=== PATIENT | female | born 1930 | race Caucasian/White ===

== ENCOUNTER 2016-10-06 05:18 | Observation (INO) | payer OTHER ==
[~2016-10-06] VITALS: Ht 152.4 cm; Wt 90.2 kg
[~2016-10-06 05:18] MED LIST: LSX40 PO; OXGN; POTA10CA28 PO; PRLSR20 PO
--- NOTE | 2016-10-06 05:54 | EMERGENCY ROOM VISIT NOTE ---
History Report prepared by Byron: Alexander White Under the Supervision of: Dr. Natalya Amin D.O. First contact with patient: 05:31 Chief Complaint: FALL Stated Complaint: FALL/SHOULDER PAIN History of Present Illness The patient is an 86 year old female who presents to the Emergency Room with complaints of an acute fall that occurred at 0400 this morning. The patient attempted to get up and go to the bathroom when she fell. She could not get back up on her own after the fall. The patient may have reinjured her right shoulder during the fall, which she injured during another fall back in August. The patient did not hit her head or lose consciousness. She denies head pain, neck pain, or abdominal pain. The patient may have been lightheaded prior to falling. The patient ambulates with a walker. She felt fine when she went to bed last night. The patient is on her last week of a six month course of chemotherapy for breast cancer. She has been becoming increasingly weak throughout the treatment. She has a port for her chemotherapy treatment. The patient receives Warfarin. It is common for her to become incontinent, as per her daughter. The patient lives by herself and has a home nurse check on her. Source of History: patient, family Onset: 0400 Position: other (global) Quality: other (fall) Timing: other (acute) Associated Symptoms: No LOC, No abdominal pain, No headache, No neck pain Review of Systems See HPI for pertinent positives & negatives. A total of 10 systems reviewed and were otherwise negative. Past Medical & Surgical Medical Problems: (1) Carcinoma of breast (2) CHF (congestive heart failure) (3) History of breast cancer (4) HTN (hypertension) (5) Pulmonary embolism Surgical Problems: (1) H/O cystoscopy (2) H/O mastectomy (3) H/O: hysterectomy (4) S/P appendectomy Family History Diabetes mellitus FH: cancer Hypertension Social History Smoking Status: Former Smoker Alcohol Use: none Drug Use: none Marital Status: Housing Status: lives alone Occupation Status: retired Current/Historical Medications Scheduled Furosemide (Furosemide), 40 MG PO QAM Omeprazole (Prilosec), 20 MG PO QAM Oxygen (Oxygen), 2 LITERS NA PRN Potassium Chloride (Micro-K Ext Rel), 10 MEQ PO BID Warfarin Sod (Jantoven), 5 MG PO DAILY Scheduled PRN Ranitidine HCl (Ranitidine HCl), 150 MG PO QPM PRN for GI Upset Allergies Coded Allergies: Penicillins (Verified Allergy, Intermediate, RASH, 10/06/16) Latex1 -Allergic Contact Dermititis (Verified Allergy, Mild, RASH, ) Thimerosal (Verified Allergy, Unknown, 07/26/16) Adhesives (Verified Adverse Reaction, Unknown, BANDAIDS,TAPE, 10/06/16) Physical Exam Vital Signs Date Time Temp Pulse Resp B/P Pulse Ox O2 Delivery O2 Flow Rate FiO2 10/06/16 06:27 100 20 136/82 98 Nasal Cannula 2.0 10/06/16 05:30 104 10/06/16 05:20 37.1 110 22 147/107 97 Nasal Cannula 2.0 Physical Exam General: Strong smell of urine. HEENT: Head - normocephalic and atraumatic Pupils are equal, round, and reactive to light. Extraocular eye muscles are intact, and sclera are anicteric. Nose - moist nasal mucosa without discharge. Mouth - moist buccal mucosa. Oropharynx is nonerythematous and there is no tonsillar exudate or edema noted. Neck: Supple; no JVD, nuchal rigidity, cervical lymphadenopathy. Heart: Regular rate and rhythm. There is a normal S1 and S2 with no murmurs, clicks, or gallops appreciated. Lungs: Clear to auscultation bilaterally with no wheezes, rales, or rhonchi. Abdomen: Soft, completely nontender, nondistended, with good bowel sounds. There are no palpable pulsatile masses or hepatosplenomegaly. There is no guarding, rigidity, or rebound noted. Extremities: Limited range of motion of the right shoulder, no pain with palpation. Significant edema and peripheral vascular changes noted to both lower extremities, right worse than left. Skin: warm and dry with good turgor and no rashes. Medical Decision & Procedures ER Provider Diagnostic Interpretation: X-ray results as stated below per interpretation by me. RIGHT SHOULDER X-RAY: No fracture or dislocation. No shoulder separation. Laboratory Results 10/06/16 06:32 Red Blood Count 3.51, Mean Corpuscular Volume 90.6, Mean Corpuscular Hemoglobin 29.3, Mean Corpuscular Hemoglobin Concent 32.4, Mean Platelet Volume 10.6, Neutrophils (%) (Auto) 87.5, Lymphocytes (%) (Auto) 9.1, Monocytes (%) (Auto) 2.5, Eosinophils (%) (Auto) 0.1, Basophils (%) (Auto) 0.1, Neutrophils # (Auto) 6.41, Lymphocytes # (Auto) 0.67, Monocytes # (Auto) 0.18, Eosinophils # (Auto) 0.01, Basophils # (Auto) 0.01 10/06/16 06:32 Test 10/06/16 06:32 10/06/16 06:38 White Blood Count 7.33 K/uL (4.8-10.8) Red Blood Count 3.51 M/uL (4.2-5.4) Hemoglobin 10.3 g/dL (12.0-16.0) Hematocrit 31.8 % (37-47) Mean Corpuscular Volume 90.6 fL (80-100) Mean Corpuscular Hemoglobin 29.3 pg (25-34) Mean Corpuscular Hemoglobin Concent 32.4 g/dl (32-36) Platelet Count 245 K/uL (130-400) Mean Platelet Volume 10.6 fL (7.4-10.4) Neutrophils (%) (Auto) 87.5 % Lymphocytes (%) (Auto) 9.1 % Monocytes (%) (Auto) 2.5 % Eosinophils (%) (Auto) 0.1 % Basophils (%) (Auto) 0.1 % Neutrophils # (Auto) 6.41 K/uL (1.4-6.5) Lymphocytes # (Auto) 0.67 K/uL (1.2-3.4) Monocytes # (Auto) 0.18 K/uL (0.11-0.59) Eosinophils # (Auto) 0.01 K/uL (0-0.5) Basophils # (Auto) 0.01 K/uL (0-0.2) RDW Standard Deviation 57.5 fL (36.4-46.3) RDW Coefficient of Variation 17.6 % (11.5-14.5) Immature Granulocyte % (Auto) 0.7 % Immature Granulocyte # (Auto) 0.05 K/uL (0.00-0.02) Prothrombin Time 22.3 SECONDS (9.0-12.0) Prothromb Time International Ratio 2.0 (0.9-1.1) Activated Partial Thromboplast Time 61.2 SECONDS (21.0-31.0) Partial Thromboplastin Ratio 2.4 Anion Gap 9.0 mmol/L (3-11) Est Creatinine Clear Calc Drug Dose 67.0 ml/min Estimated GFR () 92.2 Estimated GFR (Non- 79.6 BUN/Creatinine Ratio 22.6 (10-20) Calcium Level 7.8 mg/dl (8.5-10.1) Magnesium Level 2.1 mg/dl (1.8-2.4) Total Bilirubin 0.4 mg/dl (0.2-1) Direct Bilirubin 0.1 mg/dl (0-0.2) Aspartate Amino Transf (AST/SGOT) 21 U/L (15-37) Alanine Aminotransferase (ALT/SGPT) 12 U/L (12-78) Alkaline Phosphatase 97 U/L (45-117) Total Protein 6.3 gm/dl (6.4-8.2) Albumin 2.7 gm/dl (3.4-5.0) Urine Color YELLOW Urine Appearance CLEAR (CLEAR) Urine pH 7.5 (4.5-7.5) Urine Specific [place] 1.014 (1.000-1.030) Urine Protein NEG (NEG) Urine Glucose (UA) NEG (NEG) Urine Ketones NEG (NEG) Urine Occult Blood NEG (NEG) Urine Nitrite NEG (NEG) Urine Bilirubin NEG (NEG) Urine Urobilinogen NEG (NEG) Urine Leukocyte Esterase NEG (NEG) Laboratory results per my review. ECG Indication: other (Fall) Rate (beats per minute): 105 Rhythm: sinus tachycardia Findings: LBBB, PVC, other (Wide QRS complex.) ED Course 0537: Past medical records reviewed. The patient was evaluated in room B2. A complete history and physical exam was performed. Her port was accessed. A twelve-lead EKG was obtained. Labs are drones above. The patient went for x- ray of the right shoulder as described above. 0700: Patient was catheterized for urine. 0718: Updated the patient. The hospitalist service will be paged. 0723: Discussed the case with Dr. Mello, [facility] Hospitalist. The patient will be evaluated. Medical Decision The patient is an 86 year old female with complaints of a fall. Differential diagnosis includes UTI, electrolyte imbalance, hypoglycemia, anemia, neutropenia. Laboratory results: urinalysis was negative, glucose 87, normal renal function, white blood cells 7.3, hemoglobin 10.3, hematocrit 31.8, INR 2.0, troponin 0.065. This is an 86-year-old female patient with breast cancer who suffered a fall this morning while getting out of bed to go to the bathroom. She was unable to get up and activated her life alert necklace. Her daughter found her and called EMS. The patient has been receiving weekly chemotherapy for breast cancer. She has become increasingly weak. The patient had injured her right shoulder approximately one month ago. She fell on the right shoulder but denies striking her head or neck during the fall tonight. She does take Coumadin. The patient's troponin was elevated. EKG is unchanged. [facility]. Consults Time Called: 717 Consulting Phys[facility] Return[facility] Call: [phone]: Discussed the case with Dr. Mello [facility]. The patient will be evaluated. Impression Primary Impression: Fall Additional Impression: Elevated troponin Scribe Attestation The scribe's documentation has been prepared under my direction and personally reviewed by me in its entirety. I confirm that the note above accurately reflects all work, treatment, procedures, and medical decision making performed by me. Departure Information Dispostion Being Evaluated By Hospitalist Referrals No Doctor, Assigned (PCP) Patient Instructions A Signature Page, [facility]
[2016-10-06 06:40] LABS: BASO % 0.1 %; BASO ABS # 0.01 K/uL (0-0.2); COMPLETE YES; EOS % 0.1 %; HEMATOCRIT 31.8 % (37-47); IG% 0.7 %; LYMPH % 9.1 %; LYMPH ABS # 0.67 K/uL (1.2-3.4); MEAN CELL VOLUME 90.6 fL (80-100); MEAN CORPUSCULAR HEMOGLOBIN 29.3 pg (25-34); MEAN CORPUSCULAR HGB CONC 32.4 g/dl (32-36); MEAN PLATELET VOLUME 10.6 fL (7.4-10.4); MONO % 2.5 %; NEUT % 87.5 %; PLATELET COUNT 245 K/uL (130-400); RED BLOOD COUNT 3.51 M/uL (4.2-5.4); WHITE BLOOD COUNT 7.33 K/uL (4.8-10.8)
[2016-10-06 06:50] LABS: URINE APPEARANCE CLEAR (CLEAR); URINE BILIRUBIN NEG (NEG); URINE COLOR YELLOW; URINE NITRITE NEG (NEG); URINE PH 7.5 (4.5-7.5); URINE SPECIFIC GRAVITY 1.014 (1.000-1.030); UROBILINOGEN NEG (NEG)
[2016-10-06 06:58] LABS: PARTIAL THROMBOPLASTIN RATIO 2.4; PROTHROMBIN TIME (PATIENT) 22.3 SECONDS (9.0-12.0)
[2016-10-06 07:02] LABS: BUN/CREATININE RATIO 22.6 (10-20); CALCIUM 7.8 mg/dl (8.5-10.1); CREATININE 0.7 mg/dl (0.60-1.20); MAGNESIUM 2.1 mg/dl (1.8-2.4); POTASSIUM 3.9 mmol/L (3.5-5.1)
[2016-10-06 07:02] LABS: MANUAL MICROSCOPIC REQUIRED? NO; REVIEW REQ? NO
[2016-10-06] MEDS ORDERED: WARF5TAB7 PO (07:03)
[2016-10-06] MEDS ORDERED: RANI150T2 PO (07:04)
[2016-10-06 07:15] LABS: CKMB/CK RATIO 2.9 (0-3.0)
--- NOTE | 2016-10-06 07:47 | DIAGNOSTIC IMAGING REPORT ---
RIGHT SHOULDER MIN 2 VIEWS ROUTINE CLINICAL HISTORY: fall on right shoulder Right trauma. Pain. COMPARISON: 07/26/2016 DISCUSSION: Degenerative change right shoulder. Degenerative change acromioclavicular joint. No well-defined acute bony abnormality. Cortical margins are intact. There is no evidence for soft tissue swelling. IMPRESSION: Degenerative change right shoulder. No acute bony abnormality. Electronically signed by: Gelacio Moore M.D. 10/06/2016 7:45 AM
[2016-10-06] MEDS ORDERED: ACETAMINOPHEN 325 MG TAB PO PRN (08:15)
[2016-10-06] MEDS ORDERED: ONDANSETRON INJ 2 MG/ML 2 ML VIAL IV PRN (08:15)
[2016-10-06] MEDS ORDERED: IV FLUIDS COMPLETED PRN (08:30)
--- NOTE | 2016-10-06 08:33 | DIAGNOSTIC IMAGING REPORT ---
CHEST ONE VIEW PORTABLE CLINICAL HISTORY: [facility] dyspnea COMPARISON STUDY: 06/21/2016 FINDINGS: Mild stable cardiomegaly. Trace pleural effusion base. Pulmonary vascular congestion versus early congestive failure. IMPRESSION: Findings consistent with developing congestive heart failure Electronically signed by: Gelacio Moore M.D. 10/06/2016 8:32 AM
--- NOTE | 2016-10-06 09:03 | HISTORY & PHYSICAL EXAMINATION ---
DATE OF ADMISSION: 10/06/2016 PRIMARY CARE PHYSICIAN: Dr. Blanco. CHIEF COMPLAINT: Fell out of bed this morning around 4:00 a.m. 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 She tried to come out of bed this morning and she fell. She hurt her right shoulder area, but did not lose any consciousness. She could not get up from the fall and she used LifeAlert and got help and was brought to the Emergency Room. When asking questions, she denies to have any warnings before the fall especially and no dizziness and no blurred vision, no headache, no nausea or vomiting, no chest pain, palpitations, shortness of breath, no abdominal pain and no numbness or tingling in the extremities and following the fall, in the ER she has been feeling fine. She does not have any complaints except ongoing weakness may be secondary to chemo. PAST MEDICAL HISTORY: Significant for systolic heart failure due to congenital heart disease, history of malignant neoplasm of breast, obesity, history of pulmonary embolism and hypertension. PAST SURGICAL HISTORY: Significant for appendectomy as a child, left partial mastectomy, total hysterectomy and breast biopsy. SOCIAL HISTORY: She is . She has 1 child. She quit smoking in 1979 and she does not use any alcohol. She has been reasonably ambulant, but she uses a walker to ambulate. ALLERGIES: SHE IS ALLERGIC TO PENICILLIN, LATEX, ADHESIVE TAPES, AND THIMEROSAL. MEDICATIONS: She has been on furosemide 40 mg daily, potassium chloride 10 mEq daily, ranitidine 150 mg at night, warfarin 5 mg daily, omeprazole 20 mg daily, oxygen 2 liters. REVIEW OF SYSTEMS: As in history of present illness and other system review is unremarkable. PHYSICAL EXAMINATION: GENERAL: On examination in the Emergency Room, she was not having any acute symptoms. VITAL SIGNS: Temperature 37.1, pulse is 100, blood pressure 136/82, saturation 98% on 2 liters nasal cannula. HEENT: Unremarkable. NECK: Supple. No JVD. No bruit. CHEST: Decreased breath sounds at the bases. She has a A-Port in the left upper chest. HEART: S1, S2 with a 2/6 systolic murmur over precordium in the aortic area. ABDOMEN: Soft, benign, nontender, no organomegaly. Bowel sounds present. EXTREMITIES: She has chronic skin changes on both sides. She has lymphedema on the right side and her right leg is swelled with the fluid filled areas but no ulcerations. It was mildly hot and warm with some increased local temperature but no tenderness. CENTRAL NERVOUS SYSTEM: She was alert, awake, oriented x3. No focal sensory and/or motor deficit appreciated. LABORATORY DATA: Noted today white count was 7.33, H\T\H 10.3/31.8, platelet was 245. Sodium 140, potassium 3.9, chloride 105, carbon dioxide 26, BUN 16, creatinine 0.170, blood glucose 87. LFTs unremarkable. Troponin was mildly elevated at 0.065. INR was 2.0, PTT ratio 2.4. UA examination unremarkable. EKG was in sinus rhythm with occasional PVCs, rate of 105 per minute. Left bundle-branch block with associated ST-T wave changes. IMPRESSION AND PLAN: 1. Status post fall at home, likely secondary to generalized weakness and no significant injury or fracture following the fall. The patient will be admitted to medical floor. PT, OT evaluation and social service will placement and/or home health. 2. Systolic heart failure, chronic. No acute abnormality at this time. She had an echo done in 2016 and that showed an ejection fraction of 40% and she has mild aortic stenosis. Continue with her current dose of Lasix.Mild elevation of Troponin is likely nonsignificant.Will recheck. 3. Hypertension. Blood pressure seems to be controlled at this time. 4. History of pulmonary embolism, has been on Coumadin. INR is therapeutic. Continue with current dose. 5. Left breast cancer status post mastectomy with ongoing chemotherapy, her last chemo was supposed to be next week. No acute problem from that. 6. Gastrointestinal prophylaxis, Protonix. 7. Deep venous thrombosis prophylaxis with Coumadin. 8. Code status. Discussed with the daughter. She will be a do not resuscitate. In my clinical judgment, the beneficiary meets criteria as per CMS for 2 midnight stay in the hospital. MTDD
[2016-10-06 10:00] VITALS: BP 115/72; PULSE 78; TEMP 36.7; O2SAT 97
[2016-10-06] MEDS: POTASSIUM CHLORIDE 10 MEQ TABCR PO SCH ×2 (11:45→19:35)
[2016-10-06] MEDS: LEVOFLOXACIN 500 MG TAB PO SCH (11:45)
[2016-10-06] MEDS: PANTOprazole SOD 40 MG TAB PO SCH (11:45)
[2016-10-06] MEDS: FUROSEMIDE 40 MG TAB PO SCH (11:45)
[2016-10-06] MEDS: LACTOBACILLUS ACIDOPHILUS (FLORANEX) TAB PO SCH ×2 (11:45→16:20)
[2016-10-06 12:05] VITALS: O2SAT 95
[2016-10-06 12:43] LABS: CKMB/CK RATIO 2.9 (0-3.0)
[2016-10-06 15:00] VITALS: BP 107/66; PULSE 87; TEMP 36.6; O2SAT 95
[2016-10-06 15:40] VITALS: BP 107/66; PULSE 87; O2SAT 95
[2016-10-06] MEDS: WARFARIN SOD 5 MG TAB PO SCH (16:20)
[2016-10-06 19:42] VITALS: BP 127/75; PULSE 86; TEMP 37.2; O2SAT 93
[2016-10-07] VITALS (8 sets, daily range): BP systolic 106–146; BP diastolic 62–84; PULSE 83–90; TEMP 37–37.3; O2SAT 90–97; BMI 39.8
[2016-10-07 06:20] LABS: HEMATOCRIT 30.4 % (37-47); MEAN CELL VOLUME 92.4 fL (80-100); MEAN CORPUSCULAR HEMOGLOBIN 29.2 pg (25-34); MEAN CORPUSCULAR HGB CONC 31.6 g/dl (32-36); MEAN PLATELET VOLUME 10.8 fL (7.4-10.4); PLATELET COUNT 217 K/uL (130-400); RED BLOOD COUNT 3.29 M/uL (4.2-5.4); WHITE BLOOD COUNT 2.42 K/uL (4.8-10.8)
[2016-10-07 06:54] LABS: CALCIUM 7.7 mg/dl (8.5-10.1); CREATININE 0.77 mg/dl (0.60-1.20); MAGNESIUM 2.1 mg/dl (1.8-2.4); PHOSPHORUS 2.4 mg/dl (2.5-4.9); POTASSIUM 3.8 mmol/L (3.5-5.1)
[2016-10-07] MEDS: PANTOprazole SOD 40 MG TAB PO SCH (08:18)
[2016-10-07] MEDS: LACTOBACILLUS ACIDOPHILUS (FLORANEX) TAB PO SCH ×3 (08:18→16:31)
[2016-10-07] MEDS: POTASSIUM CHLORIDE 10 MEQ TABCR PO SCH ×2 (08:19→20:28)
[2016-10-07] MEDS: FUROSEMIDE 40 MG TAB PO SCH (08:20)
[2016-10-07] MEDS: LEVOFLOXACIN 500 MG TAB PO SCH (11:36)
--- NOTE | 2016-10-07 15:04 | Progress Note ---
Internal Med Progress Note Date of Service: Oct 07, 2016. Provider Documentation: SUBJECTIVE: The patient was seen and examined Feels a little better Generally weak and lethargic OBJECTIVE: Vital Signs-as noted below Exam: General-No distress at rest Eyes-normal ENT-normal Neck-supple Lungs-clear to auscultate bilaterally Heart-Regular,no murmur Abdomen-Benign,no masses,bowel sound present Extremities-No edema Neuro-AAOx3 Lab data as noted below. ASSESSMENT & PLAN: Status post fall at home, Likely secondary to generalized weakness No significant injury or fracture following the fall. No Fractures of any bones PT/OT evaluation May need Placement Systolic heart failure, chronic. No acute abnormality at this time. CXR-mild Congestive change ECHO done in 2016 and that showed an ejection fraction of 40% and she has mild aortic stenosis. Continue with her current dose of Lasix. Mild elevation of Troponin is likely nonsignificant-trended down Hypertension. Blood pressure seems to be controlled at this time. History of pulmonary embolism, has been on Coumadin. INR is therapeutic. Continue with current dose. Left breast cancer status post mastectomy with ongoing chemotherapy, her last chemo was supposed to be next week. No acute problem from that. Supposed to have Chemo on coming Sunday Right Leg Cellulitis Has Lymphedema Started on Levaquin Gastrointestinal prophylaxis, Protonix. Deep venous thrombosis prophylaxis with Coumadin. Code status. Discussed with the daughter. She will be a do not resuscitate. DISPOSITION Awaiting Placement Vital Signs: Date Time Temp Pulse Resp B/P Pulse Ox O2 Delivery O2 Flow Rate FiO2 10/07/16 14:45 37.3 88 20 106/65 97 Room Air 10/07/16 11:51 37.3 83 16 116/62 97 Nasal Cannula 2.0 10/07/16 08:30 90 Room Air 10/07/16 07:29 37.1 87 18 146/63 90 Room Air 10/07/16 03:42 37.1 87 16 121/70 92 Room Air 10/07/16 00:29 37.0 86 18 132/80 93 Room Air 10/06/16 23:59 Room Air 10/06/16 20:00 Room Air 10/06/16 19:42 37.2 86 18 127/75 93 Room Air 10/06/16 15:40 87 95 10/06/16 15:00 36.6 87 19 107/66 95 Nasal Cannula 3.0 Lab Results: Results Past 24 Hours Test 10/06/16 18:58 10/07/16 05:25 Range/Units Troponin I 0.072 0-0.045 ng/ml White Blood Count 2.42 4.8-10.8 K/uL Red Blood Count 3.29 4.2-5.4 M/uL Hemoglobin 9.6 12.0-16.0 g/dL Hematocrit 30.4 37-47 % Mean Corpuscular Volume 92.4 80-100 fL Mean Corpuscular Hemoglobin 29.2 25-34 pg Mean Corpuscular Hemoglobin Concent 31.6 32-36 g/dl RDW Standard Deviation 59.2 36.4-46.3 fL RDW Coefficient of Variation 17.6 11.5-14.5 % Platelet Count 217 130-400 K/uL Mean Platelet Volume 10.8 7.4-10.4 fL Sodium Level 139 136-145 mmol/L Potassium Level 3.8 3.5-5.1 mmol/L Chloride Level 105 98-107 mmol/L Carbon Dioxide Level 26 21-32 mmol/L Anion Gap 8.0 3-11 mmol/L Blood Urea Nitrogen 14 7-18 mg/dl Creatinine 0.77 0.60-1.20 mg/dl Est Creatinine Clear Calc Drug Dose 59.7 ml/min Estimated GFR () 82.2 Estimated GFR (Non- 70.9 BUN/Creatinine Ratio 18.0 10-20 Random Glucose 87 70-99 mg/dl Calcium Level 7.7 8.5-10.1 mg/dl Phosphorus Level 2.4 2.5-4.9 mg/dl Magnesium Level 2.1 1.8-2.4 mg/dl
[2016-10-07] MEDS: WARFARIN SOD 5 MG TAB PO SCH (16:31)
[2016-10-08 04:38] VITALS: BP 150/80; PULSE 80; TEMP 36.9; O2SAT 98
[2016-10-08 05:39] LABS: INR 1.9 (0.9-1.1); PROTHROMBIN TIME (PATIENT) 20.6 SECONDS (9.0-12.0)
[2016-10-08 05:56] LABS: HEMATOCRIT 29.7 % (37-47); MEAN CELL VOLUME 91.7 fL (80-100); MEAN CORPUSCULAR HEMOGLOBIN 29.6 pg (25-34); MEAN CORPUSCULAR HGB CONC 32.3 g/dl (32-36); PLATELET COUNT 185 K/uL (130-400); RED BLOOD COUNT 3.24 M/uL (4.2-5.4); WHITE BLOOD COUNT 1.17 K/uL (4.8-10.8)
[2016-10-08 06:02] LABS: BUN/CREATININE RATIO 15.6 (10-20); CALCIUM 7.8 mg/dl (8.5-10.1); CREATININE 0.84 mg/dl (0.60-1.20); POTASSIUM 3.8 mmol/L (3.5-5.1)
[2016-10-08 06:51] VITALS: BMI 38.5
[2016-10-08 07:13] VITALS: BP 129/71; PULSE 94; TEMP 36.9; O2SAT 97
[2016-10-08] MEDS: PANTOprazole SOD 40 MG TAB PO SCH (08:15)
[2016-10-08] MEDS: LACTOBACILLUS ACIDOPHILUS (FLORANEX) TAB PO SCH ×3 (08:15→16:49)
[2016-10-08] MEDS: RANITIDINE HCL 150 MG TAB PO PRN (08:15)
[2016-10-08] MEDS: POTASSIUM CHLORIDE 10 MEQ TABCR PO SCH ×2 (08:16→20:29)
[2016-10-08] MEDS: FUROSEMIDE 40 MG TAB PO SCH (08:16)
[2016-10-08 08:30] VITALS: O2SAT 97
[2016-10-08 11:11] VITALS: BP 116/66; PULSE 82; TEMP 36.9; O2SAT 96
[2016-10-08] MEDS: LEVOFLOXACIN 500 MG TAB PO SCH (11:16)
[2016-10-08 15:20] VITALS: BP 105/65; PULSE 89; TEMP 36.9; O2SAT 96
--- NOTE | 2016-10-08 15:29 | Progress Note ---
Internal Med Progress Note Date of Service: Oct 08, 2016. Provider Documentation: SUBJECTIVE: The patient was seen and examined Feels a little better Generally weak and lethargic OOB in a chair Denies any symptoms OBJECTIVE: Vital Signs-as noted below Exam: General-No distress at rest Eyes-normal ENT-normal Neck-supple Lungs-clear to auscultate bilaterally Heart-Regular,no murmur Abdomen-Benign,no masses,bowel sound present Extremities-No edema Some pain on movement of the left shoulder Neuro-AAOx3 Lab data as noted below. ASSESSMENT & PLAN: Status post fall at home, Likely secondary to generalized weakness No significant injury or fracture following the fall. No Fractures of any bones PT/OT evaluation -recommended Rehab Awaiting placement Systolic heart failure, chronic. No acute abnormality at this time. CXR-mild Congestive change ECHO done in 2015 and that showed an ejection fraction of 40% and she has mild aortic stenosis. Continue with her current dose of Lasix. Mild elevation of Troponin is likely nonsignificant-trended down No Acute symptoms Hypertension. Blood pressure seems to be controlled at this time. History of pulmonary embolism, has been on Coumadin. INR is therapeutic. Continue with current dose. Left breast cancer status post mastectomy with ongoing chemotherapy, her last chemo was supposed to be next week. No acute problem from that. Supposed to have Chemo on coming Sunday Right Leg Cellulitis-improved Has Lymphedema Started on Levaquin Gastrointestinal prophylaxis, On Protonix. Deep venous thrombosis prophylaxis Coumadin. INR therapeutic Code status. Discussed with the daughter. She will be a do not resuscitate. DISPOSITION Awaiting Placement Vital Signs: Date Time Temp Pulse Resp B/P Pulse Ox O2 Delivery O2 Flow Rate FiO2 10/08/16 15:20 36.9 89 20 105/65 96 3.0 10/08/16 11:11 36.9 82 19 116/66 96 Nasal Cannula 3.0 10/08/16 08:30 97 Nasal Cannula 3.0 10/08/16 07:13 36.9 94 18 129/71 97 Nasal Cannula 3.0 10/08/16 04:38 36.9 80 18 150/80 98 Nasal Cannula 3.0 10/07/16 23:59 Room Air 10/07/16 23:57 37.0 90 18 125/71 94 Nasal Cannula 3.0 10/07/16 19:12 37.0 87 18 126/84 97 Nasal Cannula 3.0 10/07/16 16:30 Room Air Lab Results: Results Past 24 Hours Test 10/08/16 05:10 Range/Units White Blood Count 1.17 4.8-10.8 K/uL Red Blood Count 3.24 4.2-5.4 M/uL Hemoglobin 9.6 12.0-16.0 g/dL Hematocrit 29.7 37-47 % Mean Corpuscular Volume 91.7 80-100 fL Mean Corpuscular Hemoglobin 29.6 25-34 pg Mean Corpuscular Hemoglobin Concent 32.3 32-36 g/dl RDW Standard Deviation 58.4 36.4-46.3 fL RDW Coefficient of Variation 17.5 11.5-14.5 % Platelet Count 185 130-400 K/uL Mean Platelet Volume 10.0 7.4-10.4 fL Prothrombin Time 20.6 9.0-12.0 SECONDS Prothromb Time International Ratio 1.9 0.9-1.1 Sodium Level 139 136-145 mmol/L Potassium Level 3.8 3.5-5.1 mmol/L Chloride Level 104 98-107 mmol/L Carbon Dioxide Level 29 21-32 mmol/L Anion Gap 6.0 3-11 mmol/L Blood Urea Nitrogen 13 7-18 mg/dl Creatinine 0.84 0.60-1.20 mg/dl Est Creatinine Clear Calc Drug Dose 54.7 ml/min Estimated GFR () 74.0 Estimated GFR (Non- 63.8 BUN/Creatinine Ratio 15.6 10-20 Random Glucose 88 70-99 mg/dl Calcium Level 7.8 8.5-10.1 mg/dl
[2016-10-08] MEDS: WARFARIN SOD 5 MG TAB PO SCH (15:50)
[2016-10-08] MEDS: BOOST VANILLA PO SCH ×2 (20:00)
[2016-10-08 20:06] VITALS: BP 111/71; PULSE 93; TEMP 36.9; O2SAT 97
[2016-10-09] VITALS (8 sets, daily range): BP systolic 114–155; BP diastolic 72–85; PULSE 77–104; TEMP 36.4–37; O2SAT 92–95; BMI 39.1
[2016-10-09 06:04] LABS: INR 2.3 (0.9-1.1); PROTHROMBIN TIME (PATIENT) 25.6 SECONDS (9.0-12.0)
[2016-10-09] MEDS: RANITIDINE HCL 150 MG TAB PO PRN (07:56)
[2016-10-09] MEDS: LACTOBACILLUS ACIDOPHILUS (FLORANEX) TAB PO SCH ×3 (07:56→17:28)
[2016-10-09] MEDS: PANTOprazole SOD 40 MG TAB PO SCH (07:56)
[2016-10-09] MEDS: FUROSEMIDE 40 MG TAB PO SCH (07:56)
[2016-10-09] MEDS: BOOST VANILLA PO SCH ×6 (07:57→17:28)
[2016-10-09] MEDS: POTASSIUM CHLORIDE 10 MEQ TABCR PO SCH ×2 (07:57→20:17)
[2016-10-09] MEDS: LEVOFLOXACIN 500 MG TAB PO SCH (11:29)
--- NOTE | 2016-10-09 13:44 | Progress Note ---
Internal Med Progress Note Date of Service: Oct 09, 2016. Provider Documentation: SUBJECTIVE: The patient was seen and examined Generally weak and lethargic OOB in a chair Denies any symptoms Remains stable OBJECTIVE: Vital Signs-as noted below Exam: General-No distress at rest Eyes-normal ENT-normal Neck-supple Lungs-Minimal crackles bilaterally with transmitted sound Heart-Regular,no murmur Abdomen-Benign,no masses,bowel sound present Extremities-No edema Some pain on movement of the left shoulder Neuro-AAOx3 Lab data as noted below. ASSESSMENT & PLAN: Leukopenia WCC is trending down Ongoing Chemo is likely the reason Monitor Status post fall at home, Likely secondary to generalized weakness No significant injury or fracture following the fall. No Fractures of any bones PT/OT evaluation -recommended Rehab Awaiting placement Systolic heart failure, chronic. No acute abnormality at this time. CXR-mild Congestive change ECHO done in 2015 and that showed an ejection fraction of 40% and she has mild aortic stenosis. Continue with her current dose of Lasix. Mild elevation of Troponin is likely nonsignificant-trended down Has wheezing and some crackles bilaterally Will give 40mg of Lasix x1 today Hypertension. Blood pressure seems to be controlled at this time. History of pulmonary embolism, has been on Coumadin. INR is therapeutic. Continue with current dose. Left breast cancer status post mastectomy with ongoing chemotherapy, her last chemo was supposed to be next week. No acute problem from that. Supposed to have Chemo on coming Sunday Right Leg Cellulitis-improved Has Lymphedema Started on Levaquin Improved a lot Gastrointestinal prophylaxis, On Protonix. Deep venous thrombosis prophylaxis Coumadin. INR therapeutic-2.3 10/09/16 Code status. Discussed with the daughter. She will be a do not resuscitate. DISPOSITION Awaiting Placement Vital Signs: Date Time Temp Pulse Resp B/P Pulse Ox O2 Delivery O2 Flow Rate FiO2 10/09/16 11:10 36.4 104 20 131/80 95 10/09/16 08:30 94 Nasal Cannula 3.0 10/09/16 07:44 37.0 82 20 114/73 94 10/09/16 04:37 36.5 77 18 155/75 92 Nasal Cannula 2.0 10/09/16 00:44 36.8 100 18 147/85 94 Nasal Cannula 2.0 10/09/16 00:00 Room Air 10/08/16 20:06 36.9 93 18 111/71 97 Room Air 10/08/16 16:20 Nasal Cannula 3.0 10/08/16 15:20 36.9 89 20 105/65 96 3.0 Lab Results: Results Past 24 Hours Test 10/09/16 05:25 Range/Units Prothrombin Time 25.6 9.0-12.0 SECONDS Prothromb Time International Ratio 2.3 0.9-1.1
[2016-10-09] MEDS ORDERED: FUROSEMIDE INJ 40 MG in SYRINGE 0 ML IV ONE (14:00)
[2016-10-09] MEDS: WARFARIN SOD 5 MG TAB PO SCH (16:16)
[2016-10-09] MEDS ORDERED: BOOST VANILLA PO SCH ×2 (17:00)
[2016-10-10 03:56] VITALS: BP 127/76; PULSE 92; TEMP 36.9; O2SAT 95
[2016-10-10 06:07] LABS: HEMATOCRIT 31.3 % (37-47); MEAN CELL VOLUME 92.3 fL (80-100); MEAN CORPUSCULAR HEMOGLOBIN 30.4 pg (25-34); MEAN CORPUSCULAR HGB CONC 32.9 g/dl (32-36); PLATELET COUNT 220 K/uL (130-400); RED BLOOD COUNT 3.39 M/uL (4.2-5.4); WHITE BLOOD COUNT 2.77 K/uL (4.8-10.8)
[2016-10-10 06:35] VITALS: BMI 39.0
[2016-10-10 07:30] VITALS: BP 151/76; PULSE 92; TEMP 36.3; O2SAT 92
[2016-10-10] MEDS: POTASSIUM CHLORIDE 10 MEQ TABCR PO SCH ×2 (07:54→20:50)
[2016-10-10] MEDS: FUROSEMIDE 40 MG TAB PO SCH (07:54)
[2016-10-10] MEDS: BOOST VANILLA PO SCH ×6 (07:54→16:42)
[2016-10-10] MEDS: PANTOprazole SOD 40 MG TAB PO SCH (07:55)
[2016-10-10] MEDS: LACTOBACILLUS ACIDOPHILUS (FLORANEX) TAB PO SCH ×3 (07:55→16:42)
[2016-10-10 11:25] VITALS: BP 107/69; PULSE 92; TEMP 36.4; O2SAT 96
[2016-10-10] MEDS: LEVOFLOXACIN 500 MG TAB PO SCH (11:26)
--- NOTE | 2016-10-10 15:15 | Progress Note ---
Medicine Progress Note Date & Time of Visit: Oct 10, 2016 at 14:55. Subjective Pt was seen and examined Sitting in chair comfortable with no distress Pt said that she feels fine She wants to go home today Denies any chest pain, palpitation, dizziness. Objective Last 8 Hrs Date Time Temp Pulse Resp B/P Pulse Ox O2 Delivery O2 Flow Rate FiO2 10/10/16 11:25 36.4 92 16 107/69 96 Nasal Cannula 2.0 10/10/16 08:00 Room Air 10/10/16 07:30 36.3 10/10/16 07:30 92 20 151/76 92 Room Air Physical Exam: General- No acute distress, sitting comfortable in chair Head- atraumatic Eyes- PERRL, EOMI ENT- oropharynx clear Neck- supple, no JVD Lungs- clear to auscultation and percussion Heart- regular rhythm; no murmur Abdomen- normal bowel sounds, soft, nontender Extremities- no calf tenderness, Lower extremities discoloration Neuro- alert, oriented x3 PERRL, EOMI Skin- warm & dry Laboratory Results: Last 24 Hours Test 10/10/16 05:20 White Blood Count 2.77 K/uL Red Blood Count 3.39 M/uL Hemoglobin 10.3 g/dL Hematocrit 31.3 % Mean Corpuscular Volume 92.3 fL Mean Corpuscular Hemoglobin 30.4 pg Mean Corpuscular Hemoglobin Concent 32.9 g/dl RDW Standard Deviation 57.6 fL RDW Coefficient of Variation 17.4 % Platelet Count 220 K/uL Mean Platelet Volume 10.0 fL Assessment & Plan Leukopenia Possible Related to Chemo will continue monitor cbc Stable S/P Fall Likely secondary to generalized weakness Xray of the shoulder negative for fracture Continue PT/OT Waiting for placement to Rehab Systolic heart failure, chronic. No acute abnormality at this time. CXR-mild Congestive change ECHO done in 2016 and that showed an ejection fraction of 40% and she has mild aortic stenosis. Continue with her current dose of Lasix. Mild elevation of Troponin on admission Asymptomatic Stable Hypertension. BP well controlled Stable History of pulmonary embolism, on Coumadin. INR is therapeutic. Check PT/INR. Left breast cancer status post mastectomy with ongoing chemotherapy last chemo was supposed to be next week. Supposed to have Chemo on coming Sunday Right Leg Cellulitis- improved Has Lymphedema Started on Levaquin Improved as per patient DVT px on Coumadin. INR therapeutic- 2.3 on 10/09/16 Disposition Waiting for placement to rehab Current Inpatient Medications: Current Inpatient Medications Medications (Trade) Dose Ordered Sig/Aniyah Route Start Time Stop Time Status Last Admin Dose Admin Acetaminophen (Tylenol Tab) 650 mg Q4H PRN PO 10/06/16 08:15 11/05/16 08:14 Ondansetron HCl (Zofran Inj) 4 mg Q6H PRN IV 10/06/16 08:15 11/05/16 08:14 Furosemide (Lasix tab) 40 mg QAM PO 10/06/16 09:00 11/05/16 08:59 10/10/16 07:54 40 MG Potassium Chloride (Klor-Con M10) 10 meq BID PO 10/06/16 09:00 11/05/16 08:59 10/10/16 07:54 10 MEQ Ranitidine HCl (zANTac TAB) 150 mg QPM PRN PO 10/06/16 08:15 11/05/16 08:14 10/09/16 07:56 150 MG Warfarin Sodium (Coumadin Tab) 5 mg DAILY@1600 PO 10/06/16 16:00 11/05/16 15:59 10/09/16 16:16 5 MG Pantoprazole Sodium (Protonix Tab) 40 mg QAM PO 10/06/16 09:00 11/05/16 08:59 10/10/16 07:55 40 MG Levofloxacin (Levaquin Tab) 500 mg DAILY@11 PO 10/06/16 11:00 10/16/16 10:59 10/10/16 11:26 500 MG Lactobacillus Acidophilus (Floranex Tab) 4 tab TIDM PO 10/06/16 12:00 11/05/16 11:59 10/10/16 11:26 4 TAB Miscellaneous (Iv Fluids Completed) 1 ea PRN PRN N/A 10/06/16 08:30 10/06/17 08:29 Heparin Sodium (Porcine) (Heparin 100 Unit/ml 5ml Flush) 5 ml PRN PRN IV 10/06/16 19:15 11/05/16 19:14 10/10/16 06:38 5 ML Enteral Nutritional Formula (Boost) 1 can TIDM PO 1/2/17 17:00 11/08/16 16:59 10/10/16 11:26 1 CAN
[2016-10-10 15:26] VITALS: BP 96/64; PULSE 91; TEMP 36.7; O2SAT 98
[2016-10-10 16:00] VITALS: O2SAT 98
[2016-10-10] MEDS: WARFARIN SOD 5 MG TAB PO SCH (16:43)
[2016-10-10] MEDS ORDERED: COUGH DROP (SUGAR FREE) LOZ 24 LOZ/1 BOX ONE (19:10)
[2016-10-10] MEDS ORDERED: COUGH DROP (SUGAR FREE) LOZ 24 LOZ/1 BOX PO PRN (19:15)
[2016-10-10 19:41] VITALS: BP 117/77; PULSE 82; TEMP 36.9; O2SAT 94
[2016-10-11] VITALS (8 sets, daily range): BP systolic 101–154; BP diastolic 62–82; PULSE 69–95; TEMP 36.3–36.6; O2SAT 90–97; BMI 38.0
[2016-10-11 06:04] LABS: HEMATOCRIT 30.3 % (37-47); MEAN CELL VOLUME 91.8 fL (80-100); MEAN CORPUSCULAR HEMOGLOBIN 29.4 pg (25-34); MEAN PLATELET VOLUME 10.1 fL (7.4-10.4); PLATELET COUNT 220 K/uL (130-400); WHITE BLOOD COUNT 3.38 K/uL (4.8-10.8)
[2016-10-11 06:13] LABS: INR 2.9 (0.9-1.1); PROTHROMBIN TIME (PATIENT) 31.9 SECONDS (9.0-12.0)
[2016-10-11] MEDS: PANTOprazole SOD 40 MG TAB PO SCH (08:58)
[2016-10-11] MEDS: POTASSIUM CHLORIDE 10 MEQ TABCR PO SCH ×2 (08:58→19:35)
[2016-10-11] MEDS: BOOST VANILLA PO SCH ×6 (08:59→17:18)
[2016-10-11] MEDS: LACTOBACILLUS ACIDOPHILUS (FLORANEX) TAB PO SCH ×3 (08:59→16:53)
[2016-10-11] MEDS: FUROSEMIDE 40 MG TAB PO SCH (09:00)
[2016-10-11] MEDS: LEVOFLOXACIN 500 MG TAB PO SCH (11:43)
[2016-10-11] MEDS ORDERED: ALBUT/IPRATROP 3MG/0.5MG NEB 3 ML VIAL INH PRN (13:00)
[2016-10-11] MEDS: ALBUT/IPRATROP 3MG/0.5MG NEB 3 ML VIAL INH SCH ×2 (15:43→19:55)
[2016-10-11] MEDS: WARFARIN SOD 5 MG TAB PO SCH (16:53)
--- NOTE | 2016-10-11 21:31 | Progress Note ---
Medicine Progress Note Date & Time of Visit: Oct 11, 2016 at 21:26. Subjective Pt was seen and examined Sitting in chair very comfortable with no distress Pt said that she feels fine She said that her breathing feels a little better today denies any chest pain, palpitation, dizziness Objective Last 8 Hrs Date Time Temp Pulse Resp B/P Pulse Ox O2 Delivery O2 Flow Rate FiO2 10/11/16 20:28 36.6 91 18 103/70 90 2.0 10/11/16 20:00 Room Air 10/11/16 19:55 79 14 94 Nasal Cannula 3.0 10/11/16 15:47 70 14 95 Nasal Cannula 3.0 10/11/16 15:06 36.6 95 16 154/79 92 Nasal Cannula 3.0 10/11/16 15:05 Nasal Cannula 3.0 Physical Exam: General- No acute distress, sitting comfortable in chair Head- atraumatic Eyes- PERRL, EOMI ENT- oropharynx clear Neck- supple, no JVD Lungs- Coarse breath sound Heart- regular rhythm; no murmur Abdomen- normal bowel sounds, soft, nontender Extremities- no calf tenderness, Lower extremities discoloration Neuro- alert, oriented x3 PERRL, EOMI Skin- warm & dry Laboratory Results: Last 24 Hours Test 10/11/16 05:21 White Blood Count 3.38 K/uL Red Blood Count 3.30 M/uL Hemoglobin 9.7 g/dL Hematocrit 30.3 % Mean Corpuscular Volume 91.8 fL Mean Corpuscular Hemoglobin 29.4 pg Mean Corpuscular Hemoglobin Concent 32.0 g/dl RDW Standard Deviation 57.9 fL RDW Coefficient of Variation 17.4 % Platelet Count 220 K/uL Mean Platelet Volume 10.1 fL Prothrombin Time 31.9 SECONDS Prothromb Time International Ratio 2.9 Assessment & Plan Leukopenia Possible Related to Chemo will continue monitor cbc Stable S/P Fall Likely secondary to generalized weakness Xray of the shoulder negative for fracture Continue PT/OT Waiting for placement to Rehab stable Systolic heart failure, chronic. No acute abnormality at this time. CXR-mild Congestive change ECHO done in 2016 and that showed an ejection fraction of 40% and she has mild aortic stenosis. Continue with her current dose of Lasix. Mild elevation of Troponin on admission Asymptomatic Stable Hypertension. BP well controlled Stable History of pulmonary embolism, Continue Coumadin. INR is 2.9 today that therapeutic Check PT/INR. Left breast cancer status post mastectomy with ongoing chemotherapy last chemo was supposed to be next week. Supposed to have Chemo on coming Sunday Continue follow with hem/onc Right Leg Cellulitis- improved Has Lymphedema Started on Levaquin day 6. will stop tomorrow Improved as per patient DVT px on Coumadin. INR therapeutic- 2.3 on 10/09/16 Disposition Waiting for placement to rehab Current Inpatient Medications: Current Inpatient Medications Medications (Trade) Dose Ordered Sig/Aniyah Route Start Time Stop Time Status Last Admin Dose Admin Acetaminophen (Tylenol Tab) 650 mg Q4H PRN PO 10/06/16 08:15 11/05/16 08:14 Ondansetron HCl (Zofran Inj) 4 mg Q6H PRN IV 10/06/16 08:15 11/05/16 08:14 Furosemide (Lasix tab) 40 mg QAM PO 10/06/16 09:00 11/05/16 08:59 10/11/16 09:00 40 MG Potassium Chloride (Klor-Con M10) 10 meq BID PO 10/06/16 09:00 11/05/16 08:59 10/11/16 19:35 10 MEQ Ranitidine HCl (zANTac TAB) 150 mg QPM PRN PO 10/06/16 08:15 11/05/16 08:14 10/09/16 07:56 150 MG Warfarin Sodium (Coumadin Tab) 5 mg DAILY@1600 PO 10/06/16 16:00 11/05/16 15:59 10/11/16 16:53 5 MG Pantoprazole Sodium (Protonix Tab) 40 mg QAM PO 10/06/16 09:00 11/05/16 08:59 10/11/16 08:58 40 MG Levofloxacin (Levaquin Tab) 500 mg DAILY@11 PO 10/06/16 11:00 10/12/16 15:00 10/11/16 11:43 500 MG Lactobacillus Acidophilus (Floranex Tab) 4 tab TIDM PO 10/06/16 12:00 11/05/16 11:59 10/11/16 16:53 4 TAB Miscellaneous (Iv Fluids Completed) 1 ea PRN PRN N/A 10/06/16 08:30 10/06/17 08:29 Heparin Sodium (Porcine) (Heparin 100 Unit/ml 5ml Flush) 5 ml PRN PRN IV 10/06/16 19:15 11/05/16 19:14 10/10/16 06:38 5 ML Enteral Nutritional Formula (Boost) 1 can TIDM PO 10/09/16 17:00 11/08/16 16:59 10/11/16 17:18 1 CAN Menthol (Nice Kandy) 1 kandy PRN PRN PO 10/10/16 19:15 11/09/16 19:14 Albuterol/ Ipratropium (Duoneb) 3 ml QIDR INH 10/11/16 16:00 11/10/16 15:59 10/11/16 19:55 3 ML Albuterol/ Ipratropium (Duoneb) 3 ml Q2H PRN INH 10/11/16 13:00 11/10/16 12:59
[2016-10-12] VITALS (7 sets, daily range): BP systolic 111–153; BP diastolic 65–88; PULSE 74–96; TEMP 36.4–36.7; O2SAT 93–96; BMI 41.5
[2016-10-12] MEDS: ALBUT/IPRATROP 3MG/0.5MG NEB 3 ML VIAL INH SCH ×2 (07:56→12:00)
[2016-10-12] MEDS: LACTOBACILLUS ACIDOPHILUS (FLORANEX) TAB PO SCH ×3 (08:05→16:33)
[2016-10-12] MEDS: PANTOprazole SOD 40 MG TAB PO SCH (08:05)
[2016-10-12] MEDS: BOOST VANILLA PO SCH ×6 (08:06→17:15)
[2016-10-12] MEDS: POTASSIUM CHLORIDE 10 MEQ TABCR PO SCH ×2 (08:06→19:59)
[2016-10-12] MEDS: FUROSEMIDE 40 MG TAB PO SCH (08:06)
[2016-10-12 08:32] LABS: HEMATOCRIT 30.5 % (37-47); MEAN CELL VOLUME 92.7 fL (80-100); MEAN CORPUSCULAR HEMOGLOBIN 29.8 pg (25-34); MEAN CORPUSCULAR HGB CONC 32.1 g/dl (32-36); PLATELET COUNT 229 K/uL (130-400); RED BLOOD COUNT 3.29 M/uL (4.2-5.4); WHITE BLOOD COUNT 4.44 K/uL (4.8-10.8)
[2016-10-12 08:42] LABS: INR 3.4 (0.9-1.1); PROTHROMBIN TIME (PATIENT) 38.4 SECONDS (9.0-12.0)
[2016-10-12] MEDS: LEVOFLOXACIN 500 MG TAB PO SCH (11:45)
[2016-10-12] MEDS: IPRATROPIUM BROMIDE/ALBUTEROL respimat INH INH SCH ×2 (16:33→19:58)
[2016-10-12] MEDS: WARFARIN SOD 5 MG TAB PO SCH (16:33)
--- NOTE | 2016-10-12 19:16 | Progress Note ---
Medicine Progress Note Date & Time of Visit: Oct 12, 2016 at 19:11. Subjective Pt was seen and examined Lying in bed comfortable Pt said that she feels fine still waiting for insurance approval to transfer to Rehab Pt denies any chest pain, palpitation, dizziness Her breathing feels a little better today Objective Last 8 Hrs Date Time Temp Pulse Resp B/P Pulse Ox O2 Delivery O2 Flow Rate FiO2 10/12/16 16:00 Nasal Cannula 3.0 10/12/16 15:54 36.6 96 20 132/80 96 2.0 10/12/16 12:10 36.4 92 20 127/78 94 Nasal Cannula 2.0 Physical Exam: General- No acute distress, sitting comfortable in chair Head- atraumatic Eyes- PERRL, EOMI ENT- oropharynx clear Neck- supple, no JVD Lungs- Coarse breath sound Heart- regular rhythm; no murmur Abdomen- normal bowel sounds, soft, nontender Extremities- no calf tenderness, Lower extremities discoloration Neuro- alert, oriented x3 PERRL, EOMI Skin- warm & dry Laboratory Results: Last 24 Hours Test 10/12/16 07:48 White Blood Count 4.44 K/uL Red Blood Count 3.29 M/uL Hemoglobin 9.8 g/dL Hematocrit 30.5 % Mean Corpuscular Volume 92.7 fL Mean Corpuscular Hemoglobin 29.8 pg Mean Corpuscular Hemoglobin Concent 32.1 g/dl RDW Standard Deviation 59.0 fL RDW Coefficient of Variation 17.7 % Platelet Count 229 K/uL Mean Platelet Volume 10.0 fL Prothrombin Time 38.4 SECONDS Prothromb Time International Ratio 3.4 Assessment & Plan Leukopenia Possible Related to Chemo will continue monitor cbc Improved S/P Fall Likely secondary to generalized weakness Xray of the shoulder negative for fracture Continue PT/OT Waiting for placement to Rehab stable Systolic heart failure, chronic. No acute abnormality at this time. CXR-mild Congestive change ECHO done in 2016 and that showed an ejection fraction of 40% and she has mild aortic stenosis. Continue with her current dose of Lasix. Mild elevation of Troponin on admission Asymptomatic Stable Hypertension. BP well controlled Stable History of pulmonary embolism, Continue Coumadin. INR is 3.4 today will decrease coumadin Check PT/INR in am Left breast cancer status post mastectomy with ongoing chemotherapy last chemo was supposed to be next week. Supposed to have Chemo on coming Sunday Continue follow with hem/onc Right Leg Cellulitis- improved Has Lymphedema complete levaquin course Improved as per patient DVT px on Coumadin. INR therapeutic- 3.4 on 10/12/16 Disposition Waiting for placement to rehab Current Inpatient Medications: Current Inpatient Medications Medications (Trade) Dose Ordered Sig/Aniyah Route Start Time Stop Time Status Last Admin Dose Admin Acetaminophen (Tylenol Tab) 650 mg Q4H PRN PO 10/06/16 08:15 11/05/16 08:14 Ondansetron HCl (Zofran Inj) 4 mg Q6H PRN IV 10/06/16 08:15 11/05/16 08:14 Furosemide (Lasix tab) 40 mg QAM PO 10/06/16 09:00 11/05/16 08:59 10/12/16 08:06 40 MG Potassium Chloride (Klor-Con M10) 10 meq BID PO 10/06/16 09:00 11/05/16 08:59 10/12/16 08:06 10 MEQ Ranitidine HCl (zANTac TAB) 150 mg QPM PRN PO 10/06/16 08:15 11/05/16 08:14 10/09/16 07:56 150 MG Warfarin Sodium (Coumadin Tab) 5 mg DAILY@1600 PO 10/06/16 16:00 11/05/16 15:59 10/12/16 16:33 5 MG Pantoprazole Sodium (Protonix Tab) 40 mg QAM PO 10/06/16 09:00 11/05/16 08:59 10/12/16 08:05 40 MG Lactobacillus Acidophilus (Floranex Tab) 4 tab TIDM PO 10/06/16 12:00 11/05/16 11:59 10/12/16 16:33 4 TAB Miscellaneous (Iv Fluids Completed) 1 ea PRN PRN N/A 10/06/16 08:30 10/06/17 08:29 Heparin Sodium (Porcine) (Heparin 100 Unit/ml 5ml Flush) 5 ml PRN PRN IV 10/06/16 19:15 11/05/16 19:14 10/12/16 08:22 5 ML Enteral Nutritional Formula (Boost) 1 can TIDM PO 10/09/16 17:00 11/08/16 16:59 10/12/16 17:15 1 CAN Menthol (Nice Kandy) 1 kandy PRN PRN PO 10/10/16 19:15 11/09/16 19:14 Albuterol/ Ipratropium (Combivent Respimat Inh) 1 puffs QID INH 10/12/16 17:00 11/11/16 16:59 10/12/16 16:33 1 PUFFS
[2016-10-13] VITALS (7 sets, daily range): BP systolic 104–162; BP diastolic 66–104; PULSE 75–97; TEMP 36.3–36.9; O2SAT 90–97; BMI 40.1
[2016-10-13 06:02] LABS: HEMATOCRIT 30.9 % (37-47); MEAN CELL VOLUME 93.1 fL (80-100); MEAN CORPUSCULAR HEMOGLOBIN 29.2 pg (25-34); MEAN CORPUSCULAR HGB CONC 31.4 g/dl (32-36); PLATELET COUNT 251 K/uL (130-400); RED BLOOD COUNT 3.32 M/uL (4.2-5.4); WHITE BLOOD COUNT 4.16 K/uL (4.8-10.8)
[2016-10-13 06:40] LABS: PROTHROMBIN TIME (PATIENT) 44.5 SECONDS (9.0-12.0)
[2016-10-13 06:41] LABS: BUN/CREATININE RATIO 17.7 (10-20); CALCIUM 8.2 mg/dl (8.5-10.1); CREATININE 0.89 mg/dl (0.60-1.20); POTASSIUM 3.8 mmol/L (3.5-5.1)
[2016-10-13 07:05] LABS: INR 3.9 (0.9-1.1)
[2016-10-13] MEDS: PANTOprazole SOD 40 MG TAB PO SCH (08:27)
[2016-10-13] MEDS: BOOST VANILLA PO SCH ×6 (08:27→17:55)
[2016-10-13] MEDS: LACTOBACILLUS ACIDOPHILUS (FLORANEX) TAB PO SCH ×3 (08:28→17:55)
[2016-10-13] MEDS: POTASSIUM CHLORIDE 10 MEQ TABCR PO SCH ×2 (08:28→20:48)
[2016-10-13] MEDS: FUROSEMIDE 40 MG TAB PO SCH (08:28)
[2016-10-13] MEDS: IPRATROPIUM BROMIDE/ALBUTEROL respimat INH INH SCH ×4 (08:29→20:48)
[2016-10-13] MEDS ORDERED: WARFARIN SOD 2 MG TAB PO SCH (16:00)
[2016-10-13] MEDS ORDERED: GUAIFENESIN 200 MG TAB PO ONE (20:35)
--- NOTE | 2016-10-13 20:36 | Progress Note ---
Medicine Progress Note Date & Time of Visit: Oct 13, 2016 at 20:32. Subjective pt was seen and examined lying in bed with no distress still waiting for placement Pt said that she feels the same denies any chest pain and palpitation complaints of SOB with exertion Objective Last 8 Hrs Date Time Temp Pulse Resp B/P Pulse Ox O2 Delivery O2 Flow Rate FiO2 10/13/16 19:52 36.9 97 22 162/104 90 Nasal Cannula 3.0 10/13/16 16:10 Nasal Cannula 3.0 10/13/16 15:10 36.7 83 16 104/66 96 Nasal Cannula 3.0 Physical Exam: General- No acute distress, sitting comfortable in chair Head- atraumatic Eyes- PERRL, EOMI ENT- oropharynx clear Neck- supple, no JVD Lungs- Coarse breath sound Heart- regular rhythm; no murmur Abdomen- normal bowel sounds, soft, nontender Extremities- no calf tenderness, Lower extremities discoloration Neuro- alert, oriented x3 PERRL, EOMI Skin- warm & dry Laboratory Results: Last 24 Hours Test 10/13/16 05:03 White Blood Count 4.16 K/uL Red Blood Count 3.32 M/uL Hemoglobin 9.7 g/dL Hematocrit 30.9 % Mean Corpuscular Volume 93.1 fL Mean Corpuscular Hemoglobin 29.2 pg Mean Corpuscular Hemoglobin Concent 31.4 g/dl RDW Standard Deviation 59.4 fL RDW Coefficient of Variation 17.7 % Platelet Count 251 K/uL Mean Platelet Volume 10.0 fL Prothrombin Time 44.5 SECONDS Prothromb Time International Ratio 3.9 Sodium Level 144 mmol/L Potassium Level 3.8 mmol/L Chloride Level 104 mmol/L Carbon Dioxide Level 32 mmol/L Anion Gap 8.0 mmol/L Blood Urea Nitrogen 16 mg/dl Creatinine 0.89 mg/dl Est Creatinine Clear Calc Drug Dose 48.0 ml/min Estimated GFR () 69.0 Estimated GFR (Non- 59.5 BUN/Creatinine Ratio 17.7 Random Glucose 96 mg/dl Calcium Level 8.2 mg/dl Assessment & Plan Leukopenia Possible Related to Chemo will continue monitor cbc Improved S/P Fall Likely secondary to generalized weakness Xray of the shoulder negative for fracture Continue PT/OT Waiting for placement to Rehab stable SOB associated with cough Continue breathing treatment will add guaifenesin will add prednisone Systolic heart failure, chronic. No acute abnormality at this time. CXR-mild Congestive change ECHO done in 2016 and that showed an ejection fraction of 40% and she has mild aortic stenosis. Continue with her current dose of Lasix. Mild elevation of Troponin on admission Asymptomatic Stable Hypertension. BP well controlled Stable History of pulmonary embolism, Continue Coumadin. INR is 3.9 today decreased coumadin to 2mg Check PT/INR in am Left breast cancer status post mastectomy with ongoing chemotherapy last chemo was supposed to be next week. Supposed to have Chemo on coming Sunday Continue follow with hem/onc Right Leg Cellulitis- improved Has Lymphedema complete levaquin course Improved as per patient DVT px on Coumadin. INR therapeutic- 3.9 on 10/13/16 Disposition Waiting for placement to rehab Current Inpatient Medications: Current Inpatient Medications Medications (Trade) Dose Ordered Sig/Aniyah Route Start Time Stop Time Status Last Admin Dose Admin Acetaminophen (Tylenol Tab) 650 mg Q4H PRN PO 10/06/16 08:15 11/05/16 08:14 Ondansetron HCl (Zofran Inj) 4 mg Q6H PRN IV 10/06/16 08:15 11/05/16 08:14 Furosemide (Lasix tab) 40 mg QAM PO 10/06/16 09:00 11/05/16 08:59 10/13/16 08:28 40 MG Potassium Chloride (Klor-Con M10) 10 meq BID PO 10/06/16 09:00 11/05/16 08:59 10/13/16 08:28 10 MEQ Ranitidine HCl (zANTac TAB) 150 mg QPM PRN PO 10/06/16 08:15 11/05/16 08:14 10/09/16 07:56 150 MG Pantoprazole Sodium (Protonix Tab) 40 mg QAM PO 10/06/16 09:00 11/05/16 08:59 10/13/16 08:27 40 MG Lactobacillus Acidophilus (Floranex Tab) 4 tab TIDM PO 10/06/16 12:00 11/05/16 11:59 10/13/16 17:55 4 TAB Miscellaneous (Iv Fluids Completed) 1 ea PRN PRN N/A 10/06/16 08:30 10/06/17 08:29 Heparin Sodium (Porcine) (Heparin 100 Unit/ml 5ml Flush) 5 ml PRN PRN IV 10/06/16 19:15 11/05/16 19:14 10/13/16 06:09 5 ML Enteral Nutritional Formula (Boost) 1 can TIDM PO 10/09/16 17:00 11/08/16 16:59 10/13/16 17:55 1 CAN Menthol (Nice Kandy) 1 kandy PRN PRN PO 10/10/16 19:15 11/09/16 19:14 Albuterol/ Ipratropium (Combivent Respimat Inh) 1 puffs QID INH 10/12/16 17:00 11/11/16 16:59 10/13/16 17:56 1 PUFFS Warfarin Sodium (Coumadin Tab) 2 mg DAILY@16 PO 10/13/16 16:00 11/12/16 15:59 Future hold
[2016-10-14] VITALS (7 sets, daily range): BP systolic 121–143; BP diastolic 72–86; PULSE 78–86; TEMP 36.2–36.9; O2SAT 91–97; BMI 41.0
[2016-10-14 05:54] LABS: HEMATOCRIT 33.4 % (37-47); MEAN CELL VOLUME 92.8 fL (80-100); MEAN CORPUSCULAR HEMOGLOBIN 29.4 pg (25-34); MEAN CORPUSCULAR HGB CONC 31.7 g/dl (32-36); MEAN PLATELET VOLUME 10.1 fL (7.4-10.4); PLATELET COUNT 279 K/uL (130-400); WHITE BLOOD COUNT 3.64 K/uL (4.8-10.8)
[2016-10-14] MEDS: GUAIFENESIN 200 MG TAB PO SCH ×4 (06:00→17:40)
[2016-10-14 06:12] LABS: PROTHROMBIN TIME (PATIENT) 40.3 SECONDS (9.0-12.0)
[2016-10-14 06:13] LABS: INR 3.6 (0.9-1.1)
[2016-10-14] MEDS: BOOST VANILLA PO SCH ×6 (08:43→17:32)
[2016-10-14] MEDS: POTASSIUM CHLORIDE 10 MEQ TABCR PO SCH ×2 (08:45→21:25)
[2016-10-14] MEDS: FUROSEMIDE 40 MG TAB PO SCH (08:45)
[2016-10-14] MEDS: PANTOprazole SOD 40 MG TAB PO SCH (08:45)
[2016-10-14] MEDS: LACTOBACILLUS ACIDOPHILUS (FLORANEX) TAB PO SCH ×3 (08:45→16:56)
[2016-10-14] MEDS: IPRATROPIUM BROMIDE/ALBUTEROL respimat INH INH SCH ×4 (08:46→21:26)
--- NOTE | 2016-10-14 17:56 | Progress Note ---
Medicine Progress Note Date & Time of Visit: Oct 14, 2016 at 17:50. Subjective Pt was seen and examined Sitting at the edge of the bed getting ready to eat Pt said that she does not have any complaint Denies any chest pain, palpitation, dizziness Objective Last 8 Hrs Date Time Temp Pulse Resp B/P Pulse Ox O2 Delivery O2 Flow Rate FiO2 10/14/16 16:00 91 Nasal Cannula 3.0 10/14/16 15:01 36.2 80 16 133/78 91 Nasal Cannula 3.0 Physical Exam: General- No acute distress, sitting comfortable in chair Head- atraumatic Eyes- PERRL, EOMI ENT- oropharynx clear Neck- supple, no JVD Lungs- Coarse breath sound Heart- regular rhythm; no murmur Abdomen- normal bowel sounds, soft, nontender Extremities- no calf tenderness, Lower extremities discoloration Neuro- alert, oriented x3 PERRL, EOMI Skin- warm & dry Laboratory Results: Last 24 Hours Test 10/14/16 05:07 White Blood Count 3.64 K/uL Red Blood Count 3.60 M/uL Hemoglobin 10.6 g/dL Hematocrit 33.4 % Mean Corpuscular Volume 92.8 fL Mean Corpuscular Hemoglobin 29.4 pg Mean Corpuscular Hemoglobin Concent 31.7 g/dl RDW Standard Deviation 59.4 fL RDW Coefficient of Variation 17.6 % Platelet Count 279 K/uL Mean Platelet Volume 10.1 fL Prothrombin Time 40.3 SECONDS Prothromb Time International Ratio 3.6 Assessment & Plan Leukopenia Possible Related to Chemo will continue monitor cbc stable S/P Fall Likely secondary to generalized weakness Xray of the shoulder negative for fracture Continue PT/OT Waiting for placement to Rehab stable SOB associated with cough Continue breathing treatment Continue guaifenesin continue prednisone Systolic heart failure, chronic. No acute abnormality at this time. CXR-mild Congestive change ECHO done in 2016 and that showed an ejection fraction of 40% and she has mild aortic stenosis. Continue with her current dose of Lasix. Mild elevation of Troponin on admission Asymptomatic Stable Hypertension. BP well controlled Stable History of pulmonary embolism, Continue Coumadin. INR is 3.6 today She did not get her coumadin dose yesterday decreased coumadin to 2mg Check PT/INR in am Left breast cancer status post mastectomy with ongoing chemotherapy last chemo was supposed to be next week. Supposed to have Chemo on coming Sunday Continue follow with hem/onc Right Leg Cellulitis- improved Has Lymphedema complete levaquin course Improved as per patient DVT px on Coumadin. INR therapeutic- 3.6 on 10/14/16 Disposition Waiting for placement to rehab Current Inpatient Medications: Current Inpatient Medications Medications (Trade) Dose Ordered Sig/Aniyah Route Start Time Stop Time Status Last Admin Dose Admin Acetaminophen (Tylenol Tab) 650 mg Q4H PRN PO 10/06/16 08:15 11/05/16 08:14 Ondansetron HCl (Zofran Inj) 4 mg Q6H PRN IV 10/06/16 08:15 11/05/16 08:14 Furosemide (Lasix tab) 40 mg QAM PO 10/06/16 09:00 11/05/16 08:59 10/14/16 08:45 40 MG Potassium Chloride (Klor-Con M10) 10 meq BID PO 10/06/16 09:00 11/05/16 08:59 10/14/16 08:45 10 MEQ Ranitidine HCl (zANTac TAB) 150 mg QPM PRN PO 10/06/16 08:15 11/05/16 08:14 10/09/16 07:56 150 MG Pantoprazole Sodium (Protonix Tab) 40 mg QAM PO 10/06/16 09:00 11/05/16 08:59 10/14/16 08:45 40 MG Lactobacillus Acidophilus (Floranex Tab) 4 tab TIDM PO 10/06/16 12:00 11/05/16 11:59 10/14/16 16:56 4 TAB Miscellaneous (Iv Fluids Completed) 1 ea PRN PRN N/A 10/06/16 08:30 10/06/17 08:29 Heparin Sodium (Porcine) (Heparin 100 Unit/ml 5ml Flush) 5 ml PRN PRN IV 10/06/16 19:15 11/05/16 19:14 10/13/16 06:09 5 ML Enteral Nutritional Formula (Boost) 1 can TIDM PO 10/09/16 17:00 11/08/16 16:59 10/14/16 17:32 1 CAN Menthol (Nice Kandy) 1 kandy PRN PRN PO 10/10/16 19:15 11/09/16 19:14 Albuterol/ Ipratropium (Combivent Respimat Inh) 1 puffs QID INH 10/12/16 17:00 11/11/16 16:59 10/14/16 16:59 1 PUFFS Warfarin Sodium (Coumadin Tab) 2 mg DAILY@16 PO 10/13/16 16:00 11/12/16 15:59 Future hold Prednisone (PredniSONE TAB) 40 mg DAILY PO 10/14/16 08:00 11/13/16 07:59 10/14/16 08:45 40 MG Guaifenesin (Organidin Nr Tab) 200 mg Q6 PO 10/14/16 06:00 11/13/16 05:59 10/14/16 17:40 200 MG
[2016-10-14] MEDS ORDERED: WARFARIN SOD 2 MG TAB PO ONE (18:00)
[2016-10-15 03:35] VITALS: BP 130/75; PULSE 87; TEMP 36.8; O2SAT 93
[2016-10-15] MEDS: GUAIFENESIN 200 MG TAB PO SCH ×4 (05:40→18:14)
[2016-10-15 06:10] VITALS: BMI 40.2
[2016-10-15 06:11] LABS: PROTHROMBIN TIME (PATIENT) 46.5 SECONDS (9.0-12.0)
[2016-10-15] MEDS ORDERED: HYDROCODONE/ACETAMOPHEN 5/325MG TAB PO PRN (06:15)
[2016-10-15 06:18] LABS: INR 4.1 (0.9-1.1)
[2016-10-15] MEDS ORDERED: HYDROCODONE/ACETAMOPHEN 5/325MG TAB ONE (06:24)
[2016-10-15 07:56] VITALS: BP 137/78; PULSE 79; TEMP 36.4; O2SAT 96
[2016-10-15] MEDS: BOOST VANILLA PO SCH ×6 (08:20→17:15)
[2016-10-15] MEDS: LACTOBACILLUS ACIDOPHILUS (FLORANEX) TAB PO SCH ×3 (08:22→17:11)
[2016-10-15] MEDS: POTASSIUM CHLORIDE 10 MEQ TABCR PO SCH ×2 (08:22→19:51)
[2016-10-15] MEDS: PANTOprazole SOD 40 MG TAB PO SCH (08:22)
[2016-10-15] MEDS: IPRATROPIUM BROMIDE/ALBUTEROL respimat INH INH SCH ×4 (08:23→19:51)
[2016-10-15] MEDS: FUROSEMIDE 40 MG TAB PO SCH (08:23)
[2016-10-15 12:00] VITALS: BP 129/75; PULSE 82; TEMP 36.4; O2SAT 96
[2016-10-15 15:03] VITALS: BP 117/72; PULSE 77; TEMP 36.3; O2SAT 96
--- NOTE | 2016-10-15 19:06 | Progress Note ---
Medicine Progress Note Date & Time of Visit: Oct 15, 2016 at 18:30. Subjective Pt was seen and examined Lying in bed with no distress Pt said that she feels bored she denies any chest pain, palpitation she said her breathing is at baseline Objective Last 8 Hrs Date Time Temp Pulse Resp B/P Pulse Ox O2 Delivery O2 Flow Rate FiO2 10/15/16 15:50 Nasal Cannula 3.0 10/15/16 15:03 36.3 77 16 117/72 96 Nasal Cannula 3.0 10/15/16 12:00 36.4 82 20 129/75 96 2.0 Physical Exam: General- No acute distress, sitting comfortable in chair Head- atraumatic Eyes- PERRL, EOMI ENT- oropharynx clear Neck- supple, no JVD Lungs- Coarse breath sound Heart- regular rhythm; no murmur Abdomen- normal bowel sounds, soft, nontender Extremities- no calf tenderness, Lower extremities discoloration Neuro- alert, oriented x3 PERRL, EOMI Skin- warm & dry Laboratory Results: Last 24 Hours Test 10/15/16 05:23 Prothrombin Time 46.5 SECONDS Prothromb Time International Ratio 4.1 Assessment & Plan Leukopenia Possible Related to Chemo will continue monitor cbc stable S/P Fall Likely secondary to generalized weakness Xray of the shoulder negative for fracture Continue PT/OT Waiting for placement to Rehab stable SOB associated with cough Continue breathing treatment Continue guaifenesin continue prednisone Systolic heart failure, chronic. No acute abnormality at this time. CXR-mild Congestive change ECHO done in 2016 and that showed an ejection fraction of 40% and she has mild aortic stenosis. Continue with her current dose of Lasix. Mild elevation of Troponin on admission Asymptomatic Stable Hypertension. BP well controlled Stable History of pulmonary embolism, Continue Coumadin. INR is 4.1 today Hold coumadin today Check PT/INR in am Left breast cancer status post mastectomy with ongoing chemotherapy last chemo was supposed to be next week. Supposed to have Chemo on coming Sunday Continue follow with hem/onc Right Leg Cellulitis- improved Has Lymphedema complete levaquin course Improved as per patient DVT px hold Coumadin today INR 4.1 Disposition Waiting for placement to rehab Current Inpatient Medications: Current Inpatient Medications Medications (Trade) Dose Ordered Sig/Aniyah Route Start Time Stop Time Status Last Admin Dose Admin Acetaminophen (Tylenol Tab) 650 mg Q4H PRN PO 10/06/16 08:15 11/05/16 08:14 Ondansetron HCl (Zofran Inj) 4 mg Q6H PRN IV 10/06/16 08:15 11/05/16 08:14 Furosemide (Lasix tab) 40 mg QAM PO 10/06/16 09:00 11/05/16 08:59 10/15/16 08:23 40 MG Potassium Chloride (Klor-Con M10) 10 meq BID PO 10/06/16 09:00 11/05/16 08:59 10/15/16 08:22 10 MEQ Ranitidine HCl (zANTac TAB) 150 mg QPM PRN PO 10/06/16 08:15 11/05/16 08:14 10/09/16 07:56 150 MG Pantoprazole Sodium (Protonix Tab) 40 mg QAM PO 10/06/16 09:00 11/05/16 08:59 10/15/16 08:22 40 MG Lactobacillus Acidophilus (Floranex Tab) 4 tab TIDM PO 10/06/16 12:00 11/05/16 11:59 10/15/16 17:11 4 TAB Miscellaneous (Iv Fluids Completed) 1 ea PRN PRN N/A 10/06/16 08:30 10/06/17 08:29 Heparin Sodium (Porcine) (Heparin 100 Unit/ml 5ml Flush) 5 ml PRN PRN IV 10/06/16 19:15 11/05/16 19:14 10/13/16 06:09 5 ML Enteral Nutritional Formula (Boost) 1 can TIDM PO 10/09/16 17:00 11/08/16 16:59 10/15/16 17:15 1 CAN Menthol (Nice Kandy) 1 kandy PRN PRN PO 10/10/16 19:15 11/09/16 19:14 Albuterol/ Ipratropium (Combivent Respimat Inh) 1 puffs QID INH 10/12/16 17:00 11/11/16 16:59 10/15/16 17:11 1 PUFFS Warfarin Sodium (Coumadin Tab) 2 mg DAILY@16 PO 10/13/16 16:00 11/12/16 15:59 Future Hold Prednisone (PredniSONE TAB) 40 mg DAILY PO 10/14/16 08:00 11/13/16 07:59 10/15/16 08:22 40 MG Guaifenesin (Organidin Nr Tab) 200 mg Q6 PO 10/14/16 06:00 11/13/16 05:59 10/15/16 18:14 200 MG Acetaminophen/ Hydrocodone Bitart ([place] 5/325 Tab) 1 tab Q6 PRN PO 10/15/16 06:15 10/29/16 06:14
[2016-10-15 19:56] VITALS: BP 148/85; PULSE 87; TEMP 36.3; O2SAT 95
[2016-10-15 23:54] VITALS: BP 127/71; PULSE 81; TEMP 37; O2SAT 94
[2016-10-16] MEDS: GUAIFENESIN 200 MG TAB PO SCH ×5 (00:14→23:47)
[2016-10-16 04:00] VITALS: BP 144/89; PULSE 79; TEMP 36.6; O2SAT 96
[2016-10-16 06:17] LABS: HEMATOCRIT 32.9 % (37-47); MEAN CELL VOLUME 92.7 fL (80-100); MEAN CORPUSCULAR HEMOGLOBIN 29.3 pg (25-34); MEAN CORPUSCULAR HGB CONC 31.6 g/dl (32-36); MEAN PLATELET VOLUME 9.8 fL (7.4-10.4); PLATELET COUNT 326 K/uL (130-400); RED BLOOD COUNT 3.55 M/uL (4.2-5.4); WHITE BLOOD COUNT 5.93 K/uL (4.8-10.8)
[2016-10-16 06:41] LABS: INR 3.1 (0.9-1.1)
[2016-10-16 06:45] VITALS: BMI 40.1
[2016-10-16 06:49] LABS: CALCIUM 8.5 mg/dl (8.5-10.1); POTASSIUM 4.1 mmol/L (3.5-5.1)
[2016-10-16] MEDS: IPRATROPIUM BROMIDE/ALBUTEROL respimat INH INH SCH ×4 (08:16→20:31)
[2016-10-16] MEDS: BOOST VANILLA PO SCH ×6 (08:16→16:36)
[2016-10-16] MEDS: POTASSIUM CHLORIDE 10 MEQ TABCR PO SCH ×2 (08:17→20:31)
[2016-10-16] MEDS: PANTOprazole SOD 40 MG TAB PO SCH (08:17)
[2016-10-16] MEDS: FUROSEMIDE 40 MG TAB PO SCH (08:17)
[2016-10-16] MEDS: LACTOBACILLUS ACIDOPHILUS (FLORANEX) TAB PO SCH ×3 (08:18→16:35)
[2016-10-16 08:26] VITALS: BP 137/81; PULSE 72; TEMP 36.7; O2SAT 95
[2016-10-16 14:58] VITALS: BP 112/73; PULSE 76; TEMP 36.6; O2SAT 97
[2016-10-16] MEDS ORDERED: WARFARIN SOD 3 MG TAB PO SCH (16:00)
[2016-10-16 19:35] VITALS: BP 127/76; PULSE 89; TEMP 37.3; O2SAT 96
--- NOTE | 2016-10-16 20:29 | Progress Note ---
Medicine Progress Note Date & Time of Visit: Oct 16, 2016 at 20:24. Subjective Pt was seen and examined Lying in bed with no distress Pt said that she feels ok she said that she had a walk today in the hallway and she did well she said that her breathing is at baseline denies any chest pain, palpitation Objective Last 8 Hrs Date Time Temp Pulse Resp B/P Pulse Ox O2 Delivery O2 Flow Rate FiO2 10/16/16 19:35 37.3 89 20 127/76 96 Nasal Cannula 3.0 10/16/16 16:00 Nasal Cannula 3.0 10/16/16 14:58 36.6 76 16 112/73 97 Nasal Cannula 3.0 Physical Exam: General- No acute distress, sitting comfortable in chair Head- atraumatic Eyes- PERRL, EOMI ENT- oropharynx clear Neck- supple, no JVD Lungs- Coarse breath sound Heart- regular rhythm; no murmur Abdomen- normal bowel sounds, soft, nontender Extremities- no calf tenderness, Lower extremities discoloration Neuro- alert, oriented x3 PERRL, EOMI Skin- warm & dry Laboratory Results: Last 24 Hours Test 10/16/16 05:16 White Blood Count 5.93 K/uL Red Blood Count 3.55 M/uL Hemoglobin 10.4 g/dL Hematocrit 32.9 % Mean Corpuscular Volume 92.7 fL Mean Corpuscular Hemoglobin 29.3 pg Mean Corpuscular Hemoglobin Concent 31.6 g/dl RDW Standard Deviation 59.7 fL RDW Coefficient of Variation 17.7 % Platelet Count 326 K/uL Mean Platelet Volume 9.8 fL Prothrombin Time 35.0 SECONDS Prothromb Time International Ratio 3.1 Sodium Level 141 mmol/L Potassium Level 4.1 mmol/L Chloride Level 102 mmol/L Carbon Dioxide Level 32 mmol/L Anion Gap 7.0 mmol/L Blood Urea Nitrogen 32 mg/dl Creatinine 1.00 mg/dl Est Creatinine Clear Calc Drug Dose 42.7 ml/min Estimated GFR () 59.9 Estimated GFR (Non- 51.7 BUN/Creatinine Ratio 32.0 Random Glucose 101 mg/dl Calcium Level 8.5 mg/dl Assessment & Plan Leukopenia Possible Related to Chemo will continue monitor cbc stable S/P Fall Likely secondary to generalized weakness Xray of the shoulder negative for fracture Continue PT/OT Waiting for placement to Rehab stable SOB associated with cough possible related to bronchitis Continue breathing treatment Continue guaifenesin taper prednisone Systolic heart failure, chronic. No acute abnormality at this time. CXR-mild Congestive change ECHO done in 2016 and that showed an ejection fraction of 40% and she has mild aortic stenosis. Continue with her current dose of Lasix. Mild elevation of Troponin on admission Asymptomatic Stable Hypertension. BP well controlled Stable History of pulmonary embolism, Continue Coumadin. INR is 3.1 today resume coumadin today at 3mg Check PT/INR in am Left breast cancer status post mastectomy with ongoing chemotherapy last chemo was supposed to be next week. Supposed to have Chemo on coming Sunday Continue follow with hem/onc Right Leg Cellulitis- improved Has Lymphedema complete levaquin course Improved as per patient DVT px resume Coumadin today INR 3.1 Disposition Waiting for placement to rehab Current Inpatient Medications: Current Inpatient Medications Medications (Trade) Dose Ordered Sig/Aniyah Route Start Time Stop Time Status Last Admin Dose Admin Acetaminophen (Tylenol Tab) 650 mg Q4H PRN PO 10/06/16 08:15 11/05/16 08:14 Ondansetron HCl (Zofran Inj) 4 mg Q6H PRN IV 10/06/16 08:15 11/05/16 08:14 Furosemide (Lasix tab) 40 mg QAM PO 10/06/16 09:00 11/05/16 08:59 10/16/16 08:17 40 MG Potassium Chloride (Klor-Con M10) 10 meq BID PO 10/06/16 09:00 11/05/16 08:59 10/16/16 08:17 10 MEQ Ranitidine HCl (zANTac TAB) 150 mg QPM PRN PO 10/06/16 08:15 11/05/16 08:14 10/09/16 07:56 150 MG Pantoprazole Sodium (Protonix Tab) 40 mg QAM PO 10/06/16 09:00 11/05/16 08:59 10/16/16 08:17 40 MG Lactobacillus Acidophilus (Floranex Tab) 4 tab TIDM PO 10/06/16 12:00 11/05/16 11:59 10/16/16 16:35 4 TAB Miscellaneous (Iv Fluids Completed) 1 ea PRN PRN N/A 10/06/16 08:30 10/06/17 08:29 Heparin Sodium (Porcine) (Heparin 100 Unit/ml 5ml Flush) 5 ml PRN PRN IV 10/06/16 19:15 11/05/16 19:14 10/13/16 06:09 5 ML Enteral Nutritional Formula (Boost) 1 can TIDM PO 10/09/16 17:00 11/08/16 16:59 10/16/16 16:36 1 CAN Menthol (Nice Kandy) 1 kandy PRN PRN PO 10/10/16 19:15 11/09/16 19:14 Albuterol/ Ipratropium (Combivent Respimat Inh) 1 puffs QID INH 10/12/16 17:00 11/11/16 16:59 10/16/16 16:36 1 PUFFS Prednisone (PredniSONE TAB) 40 mg DAILY PO 10/14/16 08:00 11/13/16 07:59 10/16/16 08:17 40 MG Guaifenesin (Organidin Nr Tab) 200 mg Q6 PO 10/14/16 06:00 11/13/16 05:59 10/16/16 18:08 200 MG Acetaminophen/ Hydrocodone Bitart ([place] 5/325 Tab) 1 tab Q6 PRN PO 10/15/16 06:15 10/29/16 06:14 Warfarin Sodium (Coumadin Tab) 3 mg DAILY@16 PO 10/16/16 16:00 11/15/16 15:59 10/16/16 16:36 3 MG
[2016-10-17 00:29] VITALS: BP 136/92; PULSE 75; TEMP 36.2; O2SAT 96
[2016-10-17 04:48] VITALS: BP 130/73; PULSE 72; TEMP 36.3; O2SAT 92
[2016-10-17] MEDS: GUAIFENESIN 200 MG TAB PO SCH ×2 (05:36→12:51)
[2016-10-17 05:58] LABS: INR 2.6 (0.9-1.1); PROTHROMBIN TIME (PATIENT) 28.5 SECONDS (9.0-12.0)
[2016-10-17 07:03] VITALS: Ht 152.4 cm; Wt 90.2 kg
[2016-10-17 07:53] VITALS: BP 145/67; PULSE 68; TEMP 36.8; O2SAT 96
[2016-10-17] MEDS: LACTOBACILLUS ACIDOPHILUS (FLORANEX) TAB PO SCH ×2 (07:55→12:51)
[2016-10-17] MEDS: PANTOprazole SOD 40 MG TAB PO SCH (07:56)
[2016-10-17] MEDS: FUROSEMIDE 40 MG TAB PO SCH (07:56)
[2016-10-17] MEDS: POTASSIUM CHLORIDE 10 MEQ TABCR PO SCH (07:57)
[2016-10-17] MEDS: BOOST VANILLA PO SCH ×4 (07:57→12:48)
[2016-10-17] MEDS: IPRATROPIUM BROMIDE/ALBUTEROL respimat INH INH SCH ×2 (07:57→12:52)
--- NOTE | 2016-10-17 12:56 | Progress Note ---
Medicine Progress Note Date & Time of Visit: Oct 17, 2016 at 12:51. Subjective Pt was seen and examined Sitting in chair with no distress she just had her lunch she said breathing is at baseline she said hat she feels good today she denies any chest pain, palpitation Objective Last 8 Hrs Date Time Temp Pulse Resp B/P Pulse Ox O2 Delivery O2 Flow Rate FiO2 10/17/16 08:10 Nasal Cannula 3.0 10/17/16 07:53 36.8 68 20 145/67 96 Nasal Cannula 3.0 Physical Exam: General- No acute distress, sitting comfortable in chair Head- atraumatic Eyes- PERRL, EOMI ENT- oropharynx clear Neck- supple, no JVD Lungs- Coarse breath sound Heart- regular rhythm; no murmur Abdomen- normal bowel sounds, soft, nontender Extremities- no calf tenderness, Lower extremities discoloration Neuro- alert, oriented x3 PERRL, EOMI Skin- warm & dry Laboratory Results: Last 24 Hours Test 10/17/16 05:10 Prothrombin Time 28.5 SECONDS Prothromb Time International Ratio 2.6 Assessment & Plan Leukopenia Possible Related to Chemo will continue monitor cbc stable S/P Fall Likely secondary to generalized weakness Xray of the shoulder negative for fracture Continue PT/OT Waiting for placement to Rehab stable SOB associated with cough possible related to bronchitis Continue breathing treatment Was on levaquin an completed 7 days. Continue guaifenesin taper prednisone Systolic heart failure, chronic. No acute abnormality at this time. CXR-mild Congestive change ECHO done in 2016 and that showed an ejection fraction of 40% and she has mild aortic stenosis. Continue with her current dose of Lasix. Mild elevation of Troponin on admission Asymptomatic Stable Hypertension. BP well controlled Stable History of pulmonary embolism, Continue Coumadin. INR is 2.6 today Continue coumadin Check PT/INR on Sunday Left breast cancer status post mastectomy with ongoing chemotherapy last chemo was supposed to be next week. Supposed to have Chemo on coming Sunday Continue follow with hem/onc Right Leg Cellulitis- improved Has Lymphedema complete levaquin course Improved as per patient Stable DVT px On Coumadin INR 2.6 Disposition Will Discharge today for placement to rehab Current Inpatient Medications: Current Inpatient Medications Medications (Trade) Dose Ordered Sig/Aniyah Route Start Time Stop Time Status Last Admin Dose Admin Acetaminophen (Tylenol Tab) 650 mg Q4H PRN PO 10/06/16 08:15 11/05/16 08:14 Ondansetron HCl (Zofran Inj) 4 mg Q6H PRN IV 10/06/16 08:15 11/05/16 08:14 Furosemide (Lasix tab) 40 mg QAM PO 10/06/16 09:00 11/05/16 08:59 10/17/16 07:56 40 MG Potassium Chloride (Klor-Con M10) 10 meq BID PO 10/06/16 09:00 11/05/16 08:59 10/17/16 07:57 10 MEQ Ranitidine HCl (zANTac TAB) 150 mg QPM PRN PO 10/06/16 08:15 11/05/16 08:14 10/09/16 07:56 150 MG Pantoprazole Sodium (Protonix Tab) 40 mg QAM PO 10/06/16 09:00 11/05/16 08:59 10/17/16 07:56 40 MG Lactobacillus Acidophilus (Floranex Tab) 4 tab TIDM PO 10/06/16 12:00 11/05/16 11:59 10/17/16 07:55 4 TAB Miscellaneous (Iv Fluids Completed) 1 ea PRN PRN N/A 10/06/16 08:30 10/06/17 08:29 Heparin Sodium (Porcine) (Heparin 100 Unit/ml 5ml Flush) 5 ml PRN PRN IV 10/06/16 19:15 11/05/16 19:14 10/13/16 06:09 5 ML Enteral Nutritional Formula (Boost) 1 can TIDM PO 10/09/16 17:00 11/08/16 16:59 10/17/16 12:48 1 CAN Menthol (Nice Kandy) 1 kandy PRN PRN PO 10/10/16 19:15 11/09/16 19:14 Albuterol/ Ipratropium (Combivent Respimat Inh) 1 puffs QID INH 10/12/16 17:00 11/11/16 16:59 10/17/16 07:57 1 PUFFS Prednisone (PredniSONE TAB) 40 mg DAILY PO 10/14/16 08:00 11/13/16 07:59 10/17/16 07:56 40 MG Guaifenesin (Organidin Nr Tab) 200 mg Q6 PO 10/14/16 06:00 11/13/16 05:59 10/17/16 05:36 200 MG Acetaminophen/ Hydrocodone Bitart ([place] 5/325 Tab) 1 tab Q6 PRN PO 10/15/16 06:15 10/29/16 06:14 Warfarin Sodium (Coumadin Tab) 3 mg DAILY@16 PO 10/16/16 16:00 11/15/16 15:59 10/16/16 16:36 3 MG
[2016-10-17] MEDS ORDERED: PRED10TA PO (13:06)
[2016-10-17] MEDS ORDERED: IPRA1AER2 INH (13:06)
[2016-10-17] MEDS ORDERED: WARF4TAB8 PO (13:06)
[2016-10-17] MEDS ORDERED: GUAI1TAB68 PO (13:06)
--- NOTE | 2016-10-17 13:16 | Discharge Instructions ---
Discharge Instructions Admission Reason for Admission: Fall/Shoulder Pain Discharge Discharge Diagnosis / Problem: Shortness of breath, Leukopenia, ambulatory dysf , Hx of Pulmonary embolism Discharge Goals Goal(s): Decrease discomfort, Improve function, Improve disease control Activity Recommendations Activity Limitations: resume your previous activity (as tolerated) . Instructions / Follow-Up Instructions / Follow-Up Transfer to [facility] for rehab Schedule follow up appointment with your primary care physician once discharge from rehab Schedule follow up appointment with your oncology physician Fall precaution Continue monitor INR Today INR is 2.6 Continue PT/OT eval Current Hospital Diet Patient's current hospital diet: Low Sodium Diet (2gm Na) Discharge Diet Recommended Diet: AHA Diet (Heart Healthy), Low Sodium Diet (2gm Na) Pending Studies Studies pending at discharge: no Medical Emergencies . Who to Call and When: Medical Emergencies: If at any time you feel your situation is an emergency, please call 911 immediately. . Non-Emergent Contact Non-Emergency issues call your: Primary Care Provider Call Non-Emergent contact if: you have any medication questions . . "Provider Documentation" section prepared by Fern Lorenz. VTE Core Measure Inpt VTE Proph given/why not?: Warfarin (Coumadin)
[2016-10-17 13:22] VITALS: BP 145/67; PULSE 68; TEMP 36.8; O2SAT 96
--- NOTE | 2016-10-19 23:50 | Discharge Summary ---
Discharge Summary Admission Date: Oct 06, 2016 at 08:11 Discharge Date: Oct 17, 2016 Discharge Disposition: Rehab Principal Diagnosis: S/P Fall Secondary Diagnoses/Problems: Shortness of breath Leukopenia ambulatory dysfunction Hx of Pulmonary embolism Consultations: Wound care nurse Medication Reconciliation New Medications: Guaifenesin (Organ-I Nr) 200 Mg Tab 200 MG PO Q8 for 7 Days, #21 TAB Ipratropium-Albuterol (Combivent Respimat) 1 Aer Aer 1 PUFFS INH QID for 30 Days Prednisone Tab (Prednisone) 10 Mg Tab 10 MG PO UD for 7 Days, TAB take 3 tabs for 3 days, then 2 tabs for 2 days, then 1 tab for 2 day and then stop. Changed Medications: Warfarin Sod (Jantoven) 4 Mg Tab 4 MG PO DAILY for 30 Days, #30 TAB (Changed from: Warfarin Sod (Jantoven) 5 Mg Tab 5 Mg PO DAILY) Continued Medications: Furosemide (Furosemide) 40 Mg Tab 40 MG PO QAM Omeprazole (Prilosec) 20 Mg Capcr 20 MG PO QAM, CAP Oxygen (Oxygen) Gas 2 LITERS NA PRN Potassium Chloride (Micro-K Ext Rel) 10 Meq Capcr 10 MEQ PO BID Ranitidine HCl (Ranitidine HCl) 150 Mg Tab 150 MG PO QPM PRN for GI Upset, #60 Admission Information HPI (per Admitting provider): CHIEF COMPLAINT: Fell out of bed this morning around 4:00 a.m. 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 She tried to come out of bed this morning and she fell. She hurt her right shoulder area, but did not lose any consciousness. She could not get up from the fall and she used [facility] and got help and was brought to the Emergency Room. When asking questions, she denies to have any warnings before the fall especially and no dizziness and no blurred vision, no headache, no nausea or vomiting, no chest pain, palpitations, shortness of breath, no abdominal pain and no numbness or tingling in the extremities and following the fall, in the ER she has been feeling fine. She does not have any complaints except ongoing weakness may be secondary to chemo. Physical Exam (per Admitting): PHYSICAL EXAMINATION: GENERAL: On examination in the Emergency Room, she was not having any acute symptoms. VITAL SIGNS: Temperature 37.1, pulse is 100, blood pressure 136/82, saturation 98% on 2 liters nasal cannula. HEENT: Unremarkable. NECK: Supple. No JVD. No bruit. CHEST: Decreased breath sounds at the bases. She has a A-Port in the left upper chest. HEART: S1, S2 with a 2/6 systolic murmur over precordium in the aortic area. ABDOMEN: Soft, benign, nontender, no organomegaly. Bowel sounds present. EXTREMITIES: She has chronic skin changes on both sides. She has lymphedema on the right side and her right leg is swelled with the fluid filled areas but no ulcerations. It was mildly hot and warm with some increased local temperature but no tenderness. CENTRAL NERVOUS SYSTEM: She was alert, awake, oriented x3. No focal sensory and/or motor deficit appreciated. Hospital Course Leukopenia Possible Related to Chemo will continue monitor cbc stable S/P Fall Likely secondary to generalized weakness Xray of the shoulder negative for fracture Continue PT/OT Waiting for placement to Rehab stable SOB associated with cough possible related to bronchitis Continue breathing treatment Was on levaquin an completed 7 days. Continue guaifenesin taper prednisone Systolic heart failure, chronic. No acute abnormality at this time. CXR-mild Congestive change ECHO done in 2016 and that showed an ejection fraction of 40% and she has mild aortic stenosis. Continue with her current dose of Lasix. Mild elevation of Troponin on admission Asymptomatic Stable Hypertension. BP well controlled Stable History of pulmonary embolism, Continue Coumadin. INR is 2.6 today Continue coumadin Check PT/INR on Sunday Left breast cancer status post mastectomy with ongoing chemotherapy last chemo was supposed to be next week. Supposed to have Chemo on coming Sunday Continue follow with hem/onc Right Leg Cellulitis- improved Has Lymphedema complete levaquin course Improved as per patient Stable DVT px On Coumadin INR 2.6 Disposition Will Discharge today for placement to rehab Total time spent on discharge = 35 minutes This includes examination of the patient, discharge planning, medication reconciliation, and communication with other providers. Discharge Instructions DI: Medical v4 Discharge Instructions Admission Reason for Admission: Fall/Shoulder Pain Discharge Discharge Diagnosis / Problem: Shortness of breath, Leukopenia, ambulatory dysf , Hx of Pulmonary embolism Discharge Goals Goal(s): Decrease discomfort, Improve function, Improve disease control Activity Recommendations Activity Limitations: resume your previous activity (as tolerated) . Instructions / Follow-Up Instructions / Follow-Up Transfer to [facility] for [facility] Schedule follow up appointment with your primary care physician once discharge from rehab Schedule follow up appointment with your oncology physician Fall precaution Continue monitor INR Today INR is 2.6 Continue PT/OT eval Current Hospital Diet Patient's current hospital diet: Low Sodium Diet (2gm Na) Discharge Diet Recommended Diet: AHA Diet (Heart Healthy), Low Sodium Diet (2gm Na) Pending Studies Studies pending at discharge: no Medical Emergencies . Who to Call and When: Medical Emergencies: If at any time you feel your situation is an emergency, please call 911 immediately. . Non-Emergent Contact Non-Emergency issues call your: Primary Care Provider Call Non-Emergent contact if: you have any medication questions . . "Provider Documentation" section prepared by Fern Lorenz. VTE Core Measure Inpt VTE Proph given/why not?: Warfarin (Coumadin) Additional Copies To Leti Castillo Boris M.D.
== END 2016-10-17 15:00 ==
LOC: ENRESERVTM → ENRESERVDT → EDBD 05:18 → C.EDB 05:19 → C.4E 08:11
PROVIDERS: ADMIT Internal Medicine; ATTEND Internal Medicine
DX: R06.02 Shortness of breath (principal); D72.819 Decreased white blood cell count, unspecified; C50.919 Malignant neoplasm of unspecified site of unspecified female breast; L03.115 Cellulitis of right lower limb; I89.0 Lymphedema, not elsewhere classified; I35.0 Nonrheumatic aortic (valve) stenosis; I10 Essential (primary) hypertension; E66.9 Obesity, unspecified; M25.511 Pain in right shoulder; W06.XXXA Fall from bed, initial encounter; Y92.003 Bedroom of unspecified non-institutional (private) residence as the place of occurrence of the external cause; I50.22 Chronic systolic (congestive) heart failure; Z87.891 Personal history of nicotine dependence; Z86.711 Personal history of pulmonary embolism; Z79.01 Long term (current) use of anticoagulants

== ENCOUNTER → 2016-10-31 | Outpatient (CLI) | payer OTHER ==
[~2016-10-31] MED LIST changes: +GUAI1TAB68 PO; +IPRA1AER2 INH; +RANI150T2 PO; +WARF4TAB8 PO
[2016-10-31 08:27] LABS: BASO % 0.3 %; BASO ABS # 0.03 K/uL (0-0.2); COMPLETE YES; EOS % 2.7 %; HEMATOCRIT 33.7 % (37-47); IG% 0.1 %; LYMPH % 18.2 %; LYMPH ABS # 1.64 K/uL (1.2-3.4); MEAN CELL VOLUME 94.1 fL (80-100); MEAN CORPUSCULAR HEMOGLOBIN 29.9 pg (25-34); MEAN CORPUSCULAR HGB CONC 31.8 g/dl (32-36); MEAN PLATELET VOLUME 10.6 fL (7.4-10.4); NEUT % 68.7 %; PLATELET COUNT 187 K/uL (130-400); RED BLOOD COUNT 3.58 M/uL (4.2-5.4)
[2016-10-31 08:41] LABS: INR 3.2 (0.9-1.1); PROTHROMBIN TIME (PATIENT) 36.2 SECONDS (9.0-12.0)
== END ==
LOC: C.LABCC 07:57
PROVIDERS: ATTEND Internal Medicine
DX: I26.99 Other pulmonary embolism without acute cor pulmonale (principal); D64.9 Anemia, unspecified

== ENCOUNTER → 2016-11-01 | Outpatient (CLI) | payer OTHER ==
[~2016-11-01] MED LIST changes: +OPTIRAY 320 IV PRN
--- NOTE | 2016-11-01 09:34 | DIAGNOSTIC IMAGING REPORT ---
CT OF THE CHEST WITH IV CONTRAST CLINICAL HISTORY: Breast carcinoma COMPARISON STUDY: 03/02/2016 TECHNIQUE: Following the IV administration of 120 mL of Optiray-320, CT of the thorax was performed from the thoracic inlet to the lung bases. Images are reviewed in the axial, sagittal, and coronal planes. IV contrast was administered without complication. CT DOSE: FINDINGS: Thyroid: Imaged portions of the thyroid gland are normal in appearance. Thoracic aorta: There are moderate atheromatous changes present within the aortic arch and proximal descending thoracic aorta. There is no evidence for aneurysmal dilatation Pulmonary vasculature: The pulmonary trunk is normal in caliber. There are no central filling defects identified to suggest pulmonary embolus. Note that this examination was not protocoled for the evaluation of pulmonary emboli. HEART: The heart is enlarged. Lungs and pleural spaces: There are no significant pleural effusions. There is moderate respiratory motion artifact. There is no lobar consolidation. There are subpleural left upper lobe opacities, likely secondary to prior radiation therapy. Mediastinum: There is no mediastinal lymphadenopathy. Patsy: There are borderline enlarged right hilar lymph nodes, unchanged the prior study. Axilla: Clear. Upper abdomen: Partially visualized upper abdominal viscera is within normal limits. Skeletal structures: There is an abnormal trabecular pattern involving several vertebra and ribs. There are also a few small sclerotic lesions. Skeletal metastases must be considered. IMPRESSION: 1. Mild right hilar adenopathy unchanged the prior study 2. No evidence of focal pulmonary consolidation 3. Left upper lobe subpleural opacities, likely secondary to post relation change 4. Scattered sclerotic lesions within the skeleton. Abnormal trabecular pattern involving several ribs and vertebra. 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 Electronically signed by: Taran Ward M.D. 11/01/2016 9:32 AM Dictated Date/Time: 11/01/2016 9:24 AM
--- NOTE | 2016-11-01 10:09 | DIAGNOSTIC IMAGING REPORT ---
CT ABD/PELVIS IV AND ORAL CONT CLINICAL HISTORY: Breast carcinoma COMPARISON STUDY: October 2008 TECHNIQUE: Following the IV administration of 120 mL of Optiray-320, CT scan of the abdomen and pelvis was performed from the lung bases to the proximal femurs. Images are reviewed in the axial, sagittal, and coronal planes. IV contrast was administered without complication. CT DOSE: 1487.20 mGy.cm FINDINGS: Lower chest: There is respiratory motion artifact. There is bibasal atelectasis. The heart is enlarged. There is aortic tortuosity. There are subpleural opacities within the lingula, likely secondary to prior radiation therapy. There is a left chest wall fluid collection likely postsurgical. There is mild right hilar lymph node enlargement. Liver: The contrast-enhanced liver is normal in size, contour, and attenuation. There is no intrahepatic biliary ductal dilatation. The hepatic veins and portal veins are patent. Gallbladder: Mildly distended. No calculi are visualized. Spleen: There is a 6 mm cystic lesion within the anterior aspect of the spleen. This is not visualized the prior study. Pancreas: There is fatty atrophy the pancreas. No masses are visualized. Adrenal glands: Unremarkable. Kidneys: There are bilateral renal hypodensities, the largest of which measures 37 mm. These are felt to represent cysts. Bowel: There are no transition zones indicate bowel obstruction. There is sigmoid diverticulosis. There are no peridiverticular inflammatory changes. Peritoneum: There is no intraperitoneal free air or abdominal ascites. Vasculature: The abdominal aorta is normal in course and caliber. Adenopathy: None. Pelvic viscera: The uterus is surgically absent. The bladder is decompressed. There is bladder wall thickening. There is air within the bladder possibly iatrogenic. Skeletal structures: There are scattered sclerotic lesions present within the skeleton which were not present on the prior study. 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 IMPRESSION: 1. Technically limited study secondary to respiratory motion artifact 2. Subpleural fibrotic changes within the lingula. Left chest wall fluid collection. The findings are felt to be postsurgical with probable post radiation changes. 3. No evidence of hepatic metastasis 4. Nonspecific 6 mm cystic lesion within the spleen 5. Bladder wall thickening. Air within the bladder possibly iatrogenic 6. Multiple sclerotic skeletal lesions which were not present in October 2008. 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 11/01/2016 10:07 AM Dictated Date/Time: 11/01/2016 10:00 AM
== END ==
LOC: C.CTS 08:46
PROVIDERS: ATTEND Internal Medicine Hematology & Oncology
DX: C50.912 Malignant neoplasm of unspecified site of left female breast (principal); D73.89 Other diseases of spleen; R93.7 Abnormal findings on diagnostic imaging of other parts of musculoskeletal system; R91.8 Other nonspecific abnormal finding of lung field

== ENCOUNTER → 2016-11-06 | Outpatient (CLI) | payer OTHER ==
[~2016-11-06] MED LIST changes: -OPTIRAY 320 IV PRN
[2016-11-06 08:51] LABS: BASO % 0.8 %; BASO ABS # 0.06 K/uL (0-0.2); COMPLETE YES; EOS % 3.9 %; HEMATOCRIT 32.5 % (37-47); IG% 0.3 %; LYMPH % 24.6 %; LYMPH ABS # 1.78 K/uL (1.2-3.4); MEAN CELL VOLUME 95.9 fL (80-100); MEAN CORPUSCULAR HEMOGLOBIN 30.1 pg (25-34); MEAN CORPUSCULAR HGB CONC 31.4 g/dl (32-36); MEAN PLATELET VOLUME 10.5 fL (7.4-10.4); NEUT % 61.4 %; PLATELET COUNT 193 K/uL (130-400); RED BLOOD COUNT 3.39 M/uL (4.2-5.4); WHITE BLOOD COUNT 7.25 K/uL (4.8-10.8)
[2016-11-06 08:59] LABS: ALT/SGPT 11 U/L (12-78); BLOOD UREA NITROGEN 17 mg/dl (7-18); BUN/CREATININE RATIO 21.9 (10-20); CALCIUM 8.3 mg/dl (8.5-10.1); CARBON DIOXIDE 30 mmol/L (21-32); CHLORIDE 110 mmol/L (98-107); CREATININE 0.79 mg/dl (0.60-1.20); GLUCOSE 80 mg/dl (70-99); POTASSIUM 3.6 mmol/L (3.5-5.1); SODIUM 147 mmol/L (136-145)
[2016-11-06 09:02] LABS: ALB/GLOB RATIO 0.7 (0.9-2); ALKALINE PHOSPHATASE 100 U/L (45-117); AST/SGOT 15 U/L (15-37)
== END ==
LOC: C.LABCC 08:27
PROVIDERS: ATTEND Internal Medicine
DX: C50.919 Malignant neoplasm of unspecified site of unspecified female breast (principal)

== ENCOUNTER → 2016-11-08 | Outpatient (CLI) | payer OTHER ==
[2016-11-08 09:17] LABS: INR 2.1 (0.9-1.1); PROTHROMBIN TIME (PATIENT) 23.4 SECONDS (9.0-12.0)
== END | disposition home or self-care (01) ==
LOC: C.LABCC 08:58
PROVIDERS: ATTEND Internal Medicine
DX: I26.99 Other pulmonary embolism without acute cor pulmonale (principal)